=== PATIENT | male | born 1945 | race Caucasian/White ===

== ENCOUNTER 2017-04-04 08:36 | Emergency (ER) | payer MEDICARE, OTHER ==
[2017-04-04 08:38] VITALS: BP 155/71
[2017-04-04] MEDS ORDERED: Lactated Ringers 1,000 ML IV SCH (09:00)
--- NOTE | 2017-04-04 09:12 | EDM.PDOC ---
ED HPI GENERAL MEDICAL PROBLEM - General Chief Complaint: Laceration Stated Complaint: FROM [facility] Time Seen by Provider: 04/04/17 08:40 Source of Information: Reports: Patient, EMS, Old Records History Limitations: Reports: No Limitations - History of Present Illness INITIAL COMMENTS - FREE TEXT/NARRATIVE: 71 yo male here from the dialysis center for uncontrolled bleeding in the L antecubital fossa. They put a clamp on to control bleeding and sent him via EMS to the ER for "a stitch". He has not yet had his dialysis today. Is only on ASA 81 mg daily with regard to anticoagulants. Onset: Today Onset Date: 04/04/17 Onset Time: 08:05 Duration: Minutes:, Constant Location: Reports: Upper Extremity, Left Quality: Reports: Other (no pain) Severity: Severe Improves with: Reports: Other (direct pressure) Worsens with: Reports: Other (removal of direct pressure.) Context: Reports: Other (dialysis patient) Associated Symptoms: Reports: Other (bleeding only) Treatments [employer]: Reports: Other (see below) (direct pressure) - Related Data Allergies Allergy/AdvReac Type Severity Reaction Status Date / Time No Known Allergies Allergy Verified 04/04/17 08:39 Home Meds: Home Meds Calcium Acetate [Phoslo] 3 cap PO TIDMEALS 11/29/14 [History] Cinacalcet [Sensipar] 30 mg PO DAILY 11/29/14 [History] Docusate Sodium 100 mg PO BID 11/29/14 [History] Omeprazole 20 mg PO BEDTIME 11/29/14 [History] Aspirin [Adult Low Dose Aspirin EC] 81 mg PO DAILY 04/04/17 [History] Lactulose 30 ml PO DAILY 04/04/17 [History] Midodrine 5 mg PO ASDIRECTED PRN 04/04/17 [History] Polyethylene Glycol 3350 [MiraLAX] 17 gm PO TID 04/04/17 [History] Sevelamer Carbonate [Renvela] 800 mg PO BID 04/04/17 [History] Sodium Polystyrene Sulfonate [Kayexalate] 60 ml PO ASDIRECTED 04/04/17 [History] traMADol [Ultram] 50 mg PO TID 04/04/17 [History] Social & Family History - Tobacco Use Smoking Status *Q: Former Smoker Years of Tobacco use: 50 Used Tobacco, but Quit: Yes Month Tobacco Last Used: 12 - Recreational Drug Use Recreational Drug Use: No ED ROS GENERAL - Review of Systems Review Of Systems: See Below Constitutional: Reports: No Symptoms HEENT: Reports: No Symptoms Respiratory: Reports: No Symptoms Cardiovascular: Reports: No Symptoms Endocrine: Reports: No Symptoms GI/Abdominal: Reports: No Symptoms : Reports: No Symptoms Skin: Reports: Other (Wound left antecubital fossa with arterial bleeding.) Neurological: Reports: No Symptoms ED EXAM, SKIN/RASH Exam: See Below Exam Limited By: No Limitations General Appearance: Alert, WD/WN, No Apparent Distress Respiratory/Chest: No Respiratory Distress, Lungs Clear, Normal Breath Sounds, No Accessory Muscle Use Cardiovascular: Regular Rate, Rhythm, No Edema Skin: Warm, Dry, Normal Color, No Rash, Wound/Incision (L antecubital fossa with arterial bleeding noted when clamp was removed to inspect wound. ) Location, Skin: Upper Extremity, Left Course - Vital Signs Text/Narrative:: Discussed with Dr. Salazar. Will transfer to a vascular surgeon in [place] at [place]. Dr. Acevedo accepted. EMS transfer. Last Recorded V/S: Last Vital Signs Temp 36.2 C 04/04/17 08:37 Pulse 62 04/04/17 08:37 Resp 16 04/04/17 08:37 BP 155/71 H 04/04/17 08:37 Pulse Ox 99 04/04/17 08:37 - Orders/Labs/Meds Orders: Active Orders 24 hr Category Date Time Status Lactated Ringers [Ringers, Lactated] 1,000 ml Med 04/04/17 09:00 Active IV ASDIRECTED Medication Orders Lactated Ringer's (Ringers, Lactated) 1,000 mls @ 125 mls/hr IV ASDIRECTED [facility] Meds: Medications Generic Name Dose Route Start Last Admin Trade Name Freq PRN Reason Stop Dose Admin Lactated Ringer's 1,000 mls @ 125 mls/hr 04/04/17 09:00 Ringers, Lactated IV ASDIRECTED MAICOL Departure - Departure Time of Disposition: 09:30 Disposition: DC/Tfer to Acute Hospital 02 Condition: Fair Clinical Impression: Brachial artery laceration Qualifiers: Encounter type: initial encounter Laterality: left Qualified Code(s): S45.112A - Laceration of brachial artery, left side, initial encounter - Discharge Information Referrals: PCP,None [Primary Care Provider] - - My Orders Last 24 Hours: My Active Orders 04/04/17 09:00 Lactated Ringers [Ringers, Lactated] 1,000 ml IV ASDIRECTED - Assessment/Plan Last 24 Hours: My Active Orders 04/04/17 09:00 Lactated Ringers [Ringers, Lactated] 1,000 ml IV ASDIRECTED
== END 2017-04-04 10:22 ==
LOC: JP.ED 08:36
DX: S45.112A Laceration of brachial artery, left side, initial encounter (principal); Z79.899 Other long term (current) drug therapy; Z87.891 Personal history of nicotine dependence; X58.XXXA Exposure to other specified factors, initial encounter
CPT/HCPCS: 96360; 96361; 99284; J7120

== ENCOUNTER 2017-04-23 02:25 | Emergency (ER) | payer MEDICARE ==
--- NOTE | 2017-04-23 02:39 | EDM.PDOC ---
ED HPI GENERAL MEDICAL PROBLEM - General Chief Complaint: Skin Complaint Stated Complaint: MEDICAL [facility] Time Seen by Provider: 04/23/17 02:25 Source of Information: Reports: Patient, EMS History Limitations: Reports: No Limitations - History of Present Illness INITIAL COMMENTS - FREE TEXT/NARRATIVE: 71-year-old male has been on dialysis for 7 years, tends to scratch and pick at his skin on his arms and opened a small wound on the surface of his fistula this evening. It bled for almost a half hour, he called the ambulance and the bleeding was controlled when ambulance arrived. The overlying scab that was pulled off has sealed, it's a very tiny spot over the fistula that was bleeding. There is no active bleeding at this time. Patient is stable. Onset: Sudden Duration: Hour(s): (About 30 minutes ago) Location: Reports: Upper Extremity, Left Severity: Mild denies pain Pain Score (Numeric/FACES): 0 - Related Data Allergies Allergy/AdvReac Type Severity Reaction Status Date / Time No Known Allergies Allergy Verified 04/23/17 02:35 Home Meds: Home Meds Calcium Acetate [Phoslo] 3 cap PO TIDMEALS 11/29/14 [History] Cinacalcet [Sensipar] 30 mg PO DAILY 11/29/14 [History] Docusate Sodium 100 mg PO BID 11/29/14 [History] Omeprazole 20 mg PO BEDTIME 11/29/14 [History] Aspirin [Adult Low Dose Aspirin EC] 81 mg PO DAILY 04/04/17 [History] Lactulose 30 ml PO DAILY 04/04/17 [History] Midodrine 5 mg PO ASDIRECTED PRN 04/04/17 [History] Polyethylene Glycol 3350 [MiraLAX] 17 gm PO TID 04/04/17 [History] Sevelamer Carbonate [Renvela] 800 mg PO BID 04/04/17 [History] Sodium Polystyrene Sulfonate [Kayexalate] 60 ml PO ASDIRECTED 04/04/17 [History] traMADol [Ultram] 50 mg PO TID 04/04/17 [History] Social & Family History - Tobacco Use Smoking Status *Q: Former Smoker Years of Tobacco use: 50 Used Tobacco, but Quit: Yes Month Tobacco Last Used: 12 - Recreational Drug Use Recreational Drug Use: No ED ROS GENERAL - Review of Systems Review Of Systems: See Below Constitutional: Denies: Fever Respiratory: Denies: Shortness of Breath Cardiovascular: Denies: Chest Pain GI/Abdominal: Denies: Nausea, Vomiting ED EXAM, SKIN/RASH Exam: See Below Exam Limited By: No Limitations General Appearance: Alert, No Apparent Distress Respiratory/Chest: No Respiratory Distress Extremities: Other (Exam is otherwise limited to the left arm. There are numerous superficial excoriations on the arm, a couple overlying the fistula area. A very small 1-2 mm puncture wound that was bleeding earlier has now dried without active bleeding) Course - Vital Signs Last Recorded V/S: Last Vital Signs Temp 97.3 F 04/23/17 02:35 Pulse 87 04/23/17 02:35 Resp 18 04/23/17 02:35 BP 96/54 L 04/23/17 02:35 Pulse Ox 98 04/23/17 02:35 - Re-Assessments/Exams Free Text/Narrative Re-Assessment/Exam: 04/23/17 02:37 A moderate pressure dressing was applied to the area and the patient can keep this on for the next 1-2 days. He can return if bleeding recurs and uncontrolled. Departure - Departure Time of Disposition: 02:58 Disposition: Home, Self-Care 01 Condition: Good Clinical Impression: Hemorrhage - Discharge Information Instructions: AV Fistula Placement, Care After Referrals: PCP,None [Primary Care Provider] - Forms: ED Department Discharge Care Plan Goals: Keep pressure dressing on the arm the next 1-2 days, or if comfortable leave on until the next dialysis run. Return if bleeding recurs and uncontrolled.
[2017-04-23 02:54] VITALS: BP 96/54
== END 2017-04-23 02:57 | disposition home or self-care (01) ==
LOC: JP.ED 02:25
DX: R58 Hemorrhage, not elsewhere classified (principal); Z79.899 Other long term (current) drug therapy; Z79.82 Long term (current) use of aspirin; Z87.891 Personal history of nicotine dependence
CPT/HCPCS: 99283; 99284

== ENCOUNTER 2017-04-25 07:19 | Emergency (ER) | payer MEDICARE ==
--- NOTE | 2017-04-25 09:10 | EDM.PDOC ---
ED HPI GENERAL MEDICAL PROBLEM - General Chief Complaint: General Stated Complaint: BLEEDING FROM LEFT ARM PORT Time Seen by Provider: 04/25/17 07:25 Source of Information: Reports: Patient History Limitations: Reports: No Limitations - History of Present Illness INITIAL COMMENTS - FREE TEXT/NARRATIVE: Pt arrived with active bleeding from the av shunt in the left arm. He went to Dialysis and when they cleaned the site the scab came off and he started to bleed actively. He is pumping from the site. Onset: Today Duration: Hour(s):, Other ( There is pressure on the site and it is controlled but when the pressure is let up it is still pumping. ) Location: Reports: Upper Extremity, Left Associated Symptoms: Reports: No Other Symptoms - Related Data Allergies Allergy/AdvReac Type Severity Reaction Status Date / Time No Known Allergies Allergy Verified 04/25/17 07:27 Home Meds: Home Meds Calcium Acetate [Phoslo] 3 cap PO TIDMEALS 11/29/14 [History] Omeprazole 20 mg PO BEDTIME 11/29/14 [History] Aspirin [Adult Low Dose Aspirin EC] 81 mg PO DAILY 04/04/17 [History] Lactulose 30 ml PO DAILY 04/04/17 [History] Midodrine 5 mg PO ASDIRECTED PRN 04/04/17 [History] Polyethylene Glycol 3350 [MiraLAX] 17 gm PO TID 04/04/17 [History] Sevelamer Carbonate [Renvela] 800 mg PO BID 04/04/17 [History] Sodium Polystyrene Sulfonate [Kayexalate] 60 ml PO ASDIRECTED 04/04/17 [History] traMADol [Ultram] 50 mg PO TID 04/04/17 [History] Docusate Sodium [Colace] 2 cap PO BID 04/25/17 [History] Magnesium Hydroxide [Milk of Magnesia] 30 ml PO DAILY PRN 04/25/17 [History] Past Medical History HEENT History: Reports: Impaired Vision Gastrointestinal History: Reports: Chronic Constipation, Chronic Diarrhea Genitourinary History: Reports: Dialysis, Renal Disease Dermatologic History: Reports: Other (See Below) Other Dermatologic History: dry skin - Infectious Disease History Infectious Disease History: Reports: Chicken Pox, Measles - Past Surgical History HEENT Surgical History: Reports: Oral Surgery Social & Family History - Tobacco Use Smoking Status *Q: Never Smoker Years of Tobacco use: 50 Used Tobacco, but Quit: Yes Month Tobacco Last Used: 12 - Caffeine Use Caffeine Use: Reports: None - Recreational Drug Use Recreational Drug Use: No ED ROS GENERAL - Review of Systems Review Of Systems: See Below Constitutional: Reports: No Symptoms HEENT: Reports: No Symptoms Respiratory: Reports: No Symptoms Cardiovascular: Reports: No Symptoms Endocrine: Reports: No Symptoms GI/Abdominal: Reports: No Symptoms : Reports: No Symptoms Musculoskeletal: Reports: No Symptoms, Other ( Pt has active bleeding from the av shunt. ) Neurological: Reports: No Symptoms ED EXAM, GENERAL - Physical Exam Exam: See Below Free Text/Narrative:: pt arrived with alot of bleeding from the av shunt on the left arm. He was not assessed this am at dialysis. He was cleaned with betadine. as he was being cleaned h had the scab come off and he started having alot of bleeding. Pressure was applied and he continued to bleed as soomn as the pressure was taken off. Exam Limited By: No Limitations General Appearance: Alert, No Apparent Distress, Anxious Ears: Normal TMs Nose: Normal Inspection Throat/Mouth: Normal Inspection Head: Atraumatic Neck: Normal Inspection Respiratory/Chest: No Respiratory Distress Cardiovascular: Regular Rate, Rhythm GI/Abdominal: Non-Tender (Male) Exam: Deferred Rectal (Males) Exam: Deferred Back Exam: Normal Inspection Extremities: Other ( Pt has a AV shunt on his left rm. He has active bleeding coming from the site. This is actually pumping as soon as the pressure is off. ) Neurological: Alert, Oriented, Normal Cognition Psychiatric: Normal Affect Course - Vital Signs Last Recorded V/S: Last Vital Signs Temp 34.2 C L 04/25/17 07:25 Pulse 62 04/25/17 07:25 Resp 16 04/25/17 07:25 BP 137/59 L 04/25/17 07:25 Pulse Ox 98 04/25/17 07:25 - Orders/Labs/Meds Orders: Active Orders 24 hr Category Date Time Status UA W/MICROSCOPIC [URIN] Urgent Lab 04/25/17 08:08 Uncollected Labs: Laboratory Tests 04/25/17 04/25/17 04/25/17 Range/Units 08:20 08:20 08:20 WBC 12.8 H (4.5-11.0) K/uL RBC 3.83 L (4.30-5.90) M/uL Hgb 12.1 (12.0-15.0) g/dL Hct 36.0 L (40.0-54.0) % MCV 94 (80-98) fL MCH 32 H (27-31) pg MCHC 34 (32-36) % Plt Count 200 (150-400) K/uL Neut % (Auto) 64 (36-66) % Lymph % (Auto) 23 L (24-44) % Gillespie % (Auto) 10 H (2-6) % Eos % (Auto) 3 (2-4) % Baso % (Auto) 0 (0-1) % PT (9.5-12.0) sec INR (0.80-1.20) APTT 27.1 (27.0-36.0) sec Sodium 130 L (140-148) mmol/L Potassium 5.0 (3.6-5.2) mmol/L Chloride 92 L (100-108) mmol/L Carbon Dioxide 27 (21-32) mmol/L Anion Gap 16.0 H (5.0-14.0) mmol/L BUN 75 H (7-18) mg/dL Creatinine 11.8 H* (0.8-1.3) mg/dL Est Cr Clr Drug Dosing 6.01 mL/min Estimated GFR (MDRD) 4 L (>60) Glucose 92 (74-106) mg/dL Calcium 9.3 (8.5-10.1) mg/dL Total Bilirubin 0.5 (0.2-1.0) mg/dL AST 16 (15-37) U/L ALT 20 (12-78) U/L Alkaline Phosphatase 50 (46-116) U/L Total Protein 6.6 (6.4-8.2) g/dL Albumin 3.0 L (3.4-5.0) g/dL Globulin 3.6 H (2.3-3.5) g/dL Albumin/Globulin Ratio 0.8 L (1.2-2.2) 04/25/17 Range/Units 08:20 WBC (4.5-11.0) K/uL RBC (4.30-5.90) M/uL Hgb (12.0-15.0) g/dL Hct (40.0-54.0) % MCV (80-98) fL MCH (27-31) pg MCHC (32-36) % Plt Count (150-400) K/uL Neut % (Auto) (36-66) % Lymph % (Auto) (24-44) % Gillespie % (Auto) (2-6) % Eos % (Auto) (2-4) % Baso % (Auto) (0-1) % PT 11.3 (9.5-12.0) sec INR 1.05 (0.80-1.20) APTT (27.0-36.0) sec Sodium (140-148) mmol/L Potassium (3.6-5.2) mmol/L Chloride (100-108) mmol/L Carbon Dioxide (21-32) mmol/L Anion Gap (5.0-14.0) mmol/L BUN (7-18) mg/dL Creatinine (0.8-1.3) mg/dL Est Cr Clr Drug Dosing mL/min Estimated GFR (MDRD) (>60) Glucose (74-106) mg/dL Calcium (8.5-10.1) mg/dL Total Bilirubin (0.2-1.0) mg/dL AST (15-37) U/L ALT (12-78) U/L Alkaline Phosphatase (46-116) U/L Total Protein (6.4-8.2) g/dL Albumin (3.4-5.0) g/dL Globulin (2.3-3.5) g/dL Albumin/Globulin Ratio (1.2-2.2) - Re-Assessments/Exams Free Text/Narrative Re-Assessment/Exam: 04/25/17 09:38 Pt arrived with active bleeding. his Inr and ptt is normal. His creatine is greater than 11 but this is usual for him. Departure - Departure Time of Disposition: 09:58 Disposition: DC/Tfer to Acute Hospital 02 Condition: Fair Clinical Impression: Mechanical complication of AV shunt, Renal insufficiency - Discharge Information Referrals: PCP,None [Primary Care Provider] - Forms: ED Department Discharge Care Plan Goals: Transfer to [facility] for inpatient dialysis and evaluation of the AV shunt. - My Orders Last 24 Hours: My Active Orders 04/25/17 08:08 UA W/MICROSCOPIC [URIN] Urgent - Assessment/Plan Last 24 Hours: My Active Orders 04/25/17 08:08 UA W/MICROSCOPIC [URIN] Urgent
[2017-04-25 10:17] VITALS: BP 141/55
== END 2017-04-25 10:55 ==
LOC: JP.ED 07:19
DX: T82.591A Other mechanical complication of surgically created arteriovenous shunt, initial encounter (principal); N18.9 Chronic kidney disease, unspecified; Z79.82 Long term (current) use of aspirin; Z79.899 Other long term (current) drug therapy; Z99.2 Dependence on renal dialysis
CPT/HCPCS: 36415; 80053; 85025; 85610; 85730; 99285

== ENCOUNTER 2017-04-27 05:52 | Emergency (ER) | payer MEDICARE ==
[2017-04-27 06:06] VITALS: BP 157/77
--- NOTE | 2017-04-27 06:29 | EDM.PDOC ---
ED HPI GENERAL MEDICAL PROBLEM - General Chief Complaint: General Stated Complaint: Bleeding Time Seen by Provider: 04/27/17 06:10 Source of Information: Reports: Patient, RN Notes Reviewed History Limitations: Reports: No Limitations - History of Present Illness INITIAL COMMENTS - FREE TEXT/NARRATIVE: 71-year-old male with chronic renal failure on dialysis, was sent here from dialysis because of wet dressing over his dialysis fistula site. There was a concern that he had bleeding from his port site. However the dressing was still in place, the wound had not been inspected. Nursing staff remove the dressing here there was no active bleeding in place. In the past as patient has been known to take at the scabs from dialysis and this could be a source of bleeding if he is still indulging in his behavior - Related Data Allergies Allergy/AdvReac Type Severity Reaction Status Date / Time No Known Allergies Allergy Verified 04/25/17 07:27 Home Meds: Home Meds Calcium Acetate [Phoslo] 3 cap PO TIDMEALS 11/29/14 [History] Omeprazole 20 mg PO BEDTIME 11/29/14 [History] Aspirin [Adult Low Dose Aspirin EC] 81 mg PO DAILY 04/04/17 [History] Lactulose 30 ml PO DAILY 04/04/17 [History] Midodrine 5 mg PO ASDIRECTED PRN 04/04/17 [History] Polyethylene Glycol 3350 [MiraLAX] 17 gm PO TID 04/04/17 [History] Sevelamer Carbonate [Renvela] 800 mg PO BID 04/04/17 [History] Sodium Polystyrene Sulfonate [Kayexalate] 60 ml PO ASDIRECTED 04/04/17 [History] traMADol [Ultram] 50 mg PO TID 04/04/17 [History] Docusate Sodium [Colace] 2 cap PO BID 04/25/17 [History] Magnesium Hydroxide [Milk of Magnesia] 30 ml PO DAILY PRN 04/25/17 [History] Past Medical History HEENT History: Reports: Impaired Vision Gastrointestinal History: Reports: Chronic Constipation, Chronic Diarrhea Genitourinary History: Reports: Dialysis, Renal Disease Dermatologic History: Reports: Other (See Below) Other Dermatologic History: dry skin - Infectious Disease History Infectious Disease History: Reports: Chicken Pox, Measles - Past Surgical History HEENT Surgical History: Reports: Oral Surgery Social & Family History - Tobacco Use Smoking Status *Q: Unknown Ever Smoked Years of Tobacco use: 50 Used Tobacco, but Quit: Yes Month Tobacco Last Used: 12 - Caffeine Use Caffeine Use: Reports: None - Recreational Drug Use Recreational Drug Use: No ED ROS GENERAL - Review of Systems Review Of Systems: ROS reveals no pertinent complaints other than HPI. Skin: Reports: Other (Bleeding from fistula site on the upper arm) ED EXAM, GENERAL - Physical Exam Exam: See Below Exam Limited By: No Limitations General Appearance: Alert, No Apparent Distress, Other (Elevated blood pressure but other vital signs normal) Respiratory/Chest: No Respiratory Distress, No Accessory Muscle Use Cardiovascular: Normal Peripheral Pulses (Except week hand pulses because of fistula), Regular Rate, Rhythm Neurological: Alert, Oriented Psychiatric: Normal Mood Skin Exam: Warm, Dry, Other (Fistula site upper arm, no active bleeding) Lymphatic: No Adenopathy Course - Vital Signs Last Recorded V/S: Last Vital Signs Temp 35.5 C 04/27/17 06:03 Pulse 67 04/27/17 06:03 Resp 15 04/27/17 06:03 BP 157/77 H 04/27/17 06:03 Pulse Ox 100 04/27/17 06:03 - Re-Assessments/Exams Free Text/Narrative Re-Assessment/Exam: 04/27/17 06: 71-year-old gentleman who was sent from dialysis because of bleeding at his fistula site. However when the site was undressed and inspected, he had no active bleeding currently. Can be transferred back to dialysis. 04/27/17 06:42 Departure - Departure Time of Disposition: 06:28 Disposition: Home, Self-Care 01 Condition: Fair Clinical Impression: Chronic kidney disease with end stage renal failure on dialysis Bleeding from dialysis shunt Qualifiers: Encounter type: initial encounter Qualified Code(s): T82.838A - Hemorrhage due to vascular prosthetic devices, implants and grafts, initial encounter - Discharge Information Instructions: Vascular Access for Hemodialysis Referrals: Reggie Rebolledo MD [Primary Care Provider] - Forms: ED Department Discharge Additional Instructions: Bleeding has stopped Continue with dialysis.
== END 2017-04-27 06:36 | disposition home or self-care (01) ==
LOC: JP.ED 05:52
DX: T82.838A Hemorrhage due to vascular prosthetic devices, implants and grafts, initial encounter (principal); N18.6 End stage renal disease; Z99.2 Dependence on renal dialysis; Z79.899 Other long term (current) drug therapy; Z79.82 Long term (current) use of aspirin
CPT/HCPCS: 99282; 99284

== ENCOUNTER 2017-08-05 06:10 | Emergency (ER) | payer MEDICARE ==
[2017-08-05 06:24] VITALS: BP 131/71
--- NOTE | 2017-08-05 07:10 | EDM.PDOC ---
ED HPI GENERAL MEDICAL PROBLEM - General Chief Complaint: Cardiovascular Problem Stated Complaint: MEDICAL VIA [facility] Time Seen by Provider: 08/05/17 07:04 Source of Information: Reports: Patient, RN Notes Reviewed History Limitations: Reports: No Limitations - History of Present Illness INITIAL COMMENTS - FREE TEXT/NARRATIVE: 71-year-old gentleman presents emergency department today with complaint of bleeding from his dialysis fistula. He has had this happen before he does have a clamp in place is otherwise asymptomatic at this time - Related Data Allergies Allergy/AdvReac Type Severity Reaction Status Date / Time No Known Allergies Allergy Verified 08/05/17 06:22 Home Meds: Home Meds Calcium Acetate [Phoslo] 4 cap PO TIDMEALS 11/29/14 [History] Omeprazole 20 mg PO BEDTIME 11/29/14 [History] Aspirin [Adult Low Dose Aspirin EC] 81 mg PO DAILY 04/04/17 [History] Lactulose 30 ml PO DAILY PRN 04/04/17 [History] Midodrine 5 mg PO ASDIRECTED PRN 04/04/17 [History] Polyethylene Glycol 3350 [MiraLAX] 17 gm PO DAILY PRN 04/04/17 [History] Sevelamer Carbonate [Renvela] 800 mg PO BID 04/04/17 [History] Sodium Polystyrene Sulfonate [Kayexalate] 30 g PO ASDIRECTED 04/04/17 [History] traMADol [Ultram] 50 mg PO TID 04/04/17 [History] Docusate Sodium [Colace] 2 cap PO BID 04/25/17 [History] Magnesium Hydroxide [Milk of Magnesia] 30 ml PO DAILY PRN 04/25/17 [History] Acetaminophen [Pain Relief Extra Strength] 500 mg PO QID PRN 08/05/17 [History] Past Medical History HEENT History: Reports: Cataract, Impaired Vision Cardiovascular History: Reports: High Cholesterol Respiratory History: Reports: SOB Gastrointestinal History: Reports: Chronic Constipation, Chronic Diarrhea Genitourinary History: Reports: Dialysis, Renal Disease Endocrine/Metabolic History: Reports: Obesity/BMI 30+ Hematologic History: Reports: Anemia Dermatologic History: Reports: Other (See Below) Other Dermatologic History: dry skin - Infectious Disease History Infectious Disease History: Reports: Chicken Pox, Measles - Past Surgical History HEENT Surgical History: Reports: Oral Surgery Cardiovascular Surgical History: Reports: Vascular Surgery Respiratory Surgical History: Reports: Thoracentesis GI Surgical History: Reports: Colonoscopy, EGD Social & Family History - Tobacco Use Smoking Status *Q: Current Every Day Smoker Years of Tobacco use: 55 Packs/Tins Daily: 1 Used Tobacco, but Quit: Yes Month/Year Tobacco Last Used: 12 - Caffeine Use Caffeine Use: Reports: Coffee - Recreational Drug Use Recreational Drug Use: No ED ROS GENERAL - Review of Systems Review Of Systems: See Below Constitutional: Reports: No Symptoms Respiratory: Reports: No Symptoms Cardiovascular: Reports: No Symptoms Skin: Reports: Wound ED EXAM, GENERAL - Physical Exam Exam: See Below Free Text/Narrative:: Examination of dialysis fistula he does have a clamp on left arm bleeding is controlled Exam Limited By: No Limitations General Appearance: Alert, WD/WN, No Apparent Distress Respiratory/Chest: No Respiratory Distress Course - Vital Signs Last Recorded V/S: Last Vital Signs Temp 95.2 F L 08/05/17 06:18 Pulse 72 08/05/17 06:18 Resp 18 08/05/17 06:18 BP 131/71 08/05/17 06:18 Pulse Ox 99 08/05/17 06:18 - Orders/Labs/Meds Labs: Laboratory Tests 08/05/17 Range/Units 08:25 Hgb 15.4 H D (12.0-15.0) g/dL Departure - Departure Time of Disposition: 10:13 Disposition: Home, Self-Care 01 Condition: Good Clinical Impression: Bleeding from dialysis shunt Qualifiers: Encounter type: initial encounter Qualified Code(s): T82.838A - Hemorrhage due to vascular prosthetic devices, implants and grafts, initial encounter Referrals: PCP,None [Primary Care Provider] - Forms: ED Department Discharge Additional Instructions: Please follow-up with dialysis when available keep your follow-up appointments with your information systems administrator and primary care as scheduled, please return to the emergency department worsening of symptoms - Assessment/Plan Plan: Assessment Acuity = acute Site and laterality = bleeding fistula site left arm Etiology = spontaneous Manifestations = none Location of injury = Home Lab values = hemoglobin 15.4 Plan The bleeding was stopped with pressure and ice, plan is to discharge home follow -up with dialysis when available This note was dictated using [employer] voice recognition software please call with any questions on syntax or oralia.
== END 2017-08-05 10:37 | disposition home or self-care (01) ==
LOC: JP.ED 06:10
DX: T82.838A Hemorrhage due to vascular prosthetic devices, implants and grafts, initial encounter (principal); F17.210 Nicotine dependence, cigarettes, uncomplicated; E78.00 Pure hypercholesterolemia, unspecified; Z79.82 Long term (current) use of aspirin; Z79.899 Other long term (current) drug therapy
CPT/HCPCS: 36415; 85018; 99284

== ENCOUNTER 2017-08-24 05:22 | Emergency (ER) | payer MEDICARE, OTHER ==
--- NOTE | 2017-08-24 05:37 | EDM.PDOC ---
ED HPI GENERAL MEDICAL PROBLEM - General Time Seen by Provider: 08/24/17 05:22 Source of Information: Reports: Patient History Limitations: Reports: No Limitations - History of Present Illness INITIAL COMMENTS - FREE TEXT/NARRATIVE: 71-year-old male was a bout to go to dialysis when his left antecubital area of his arm near his fistula started bleeding again. He pulled into the ER ramp bleeding all over the place. Pressure was applied immediately. Bleeding was controlled. He has no other symptoms, but evaluating the ambulance garage and his vehicle revealed quite a bit of blood and clots. CBC was drawn. Onset: Sudden Duration: Minutes: (Within just the last few minutes) Location: Reports: Upper Extremity, Left Severity: Moderate Associated Symptoms: Reports: No Other Symptoms Denies Pain Score (Numeric/FACES): 0 - Related Data Allergies Allergy/AdvReac Type Severity Reaction Status Date / Time No Known Allergies Allergy Verified 08/24/17 05:39 Home Meds: Home Meds Calcium Acetate [Phoslo] 4 cap PO TIDMEALS 11/29/14 [History] Omeprazole 20 mg PO BEDTIME 11/29/14 [History] Aspirin [Adult Low Dose Aspirin EC] 81 mg PO DAILY 04/04/17 [History] Lactulose 30 ml PO DAILY PRN 04/04/17 [History] Midodrine 5 mg PO ASDIRECTED PRN 04/04/17 [History] Polyethylene Glycol 3350 [MiraLAX] 17 gm PO DAILY PRN 04/04/17 [History] Sevelamer Carbonate [Renvela] 800 mg PO BID 04/04/17 [History] Sodium Polystyrene Sulfonate [Kayexalate] 30 g PO ASDIRECTED 04/04/17 [History] traMADol [Ultram] 50 mg PO TID 04/04/17 [History] Docusate Sodium [Colace] 2 cap PO BID 04/25/17 [History] Magnesium Hydroxide [Milk of Magnesia] 30 ml PO DAILY PRN 04/25/17 [History] Acetaminophen [Pain Relief Extra Strength] 500 mg PO QID PRN 08/05/17 [History] Past Medical History HEENT History: Reports: Cataract, Impaired Vision Cardiovascular History: Reports: High Cholesterol Respiratory History: Reports: SOB Gastrointestinal History: Reports: Chronic Constipation, Chronic Diarrhea Genitourinary History: Reports: Dialysis, Renal Disease Endocrine/Metabolic History: Reports: Obesity/BMI 30+ Hematologic History: Reports: Anemia Dermatologic History: Reports: Other (See Below) Other Dermatologic History: dry skin - Infectious Disease History Infectious Disease History: Reports: Chicken Pox, Measles - Past Surgical History HEENT Surgical History: Reports: Oral Surgery Cardiovascular Surgical History: Reports: Vascular Surgery Respiratory Surgical History: Reports: Thoracentesis GI Surgical History: Reports: Colonoscopy, EGD Social & Family History - Caffeine Use Caffeine Use: Reports: Coffee ED ROS GENERAL - Review of Systems Review Of Systems: See Below Constitutional: Denies: Fever, Chills Respiratory: Denies: Shortness of Breath GI/Abdominal: Denies: Nausea, Vomiting ED EXAM, GENERAL - Physical Exam Exam: See Below Exam Limited By: No Limitations General Appearance: Alert, No Apparent Distress Respiratory/Chest: No Respiratory Distress Extremities: Other (Exam is otherwise limited to the small pinhole size puncture type wound in the left antecubital area of the arm that was bleeding briskly) Course - Vital Signs Last Recorded V/S: Last Vital Signs Temp 97.2 F 08/24/17 05:49 Pulse 70 08/24/17 05:49 Resp 16 08/24/17 05:49 BP 129/71 08/24/17 05:49 Pulse Ox 96 08/24/17 05:49 - Orders/Labs/Meds Labs: Laboratory Tests 08/24/17 Range/Units 05:30 WBC 11.1 H (4.5-11.0) K/uL RBC 4.69 (4.30-5.90) M/uL Hgb 14.4 (12.0-15.0) g/dL Hct 43.4 (40.0-54.0) % MCV 93 (80-98) fL MCH 31 (27-31) pg MCHC 33 (32-36) % Plt Count 235 (150-400) K/uL Neut % (Auto) 51 (36-66) % Lymph % (Auto) 29 (24-44) % [place] % (Auto) 13 H (2-6) % Eos % (Auto) 6 H (2-4) % Baso % (Auto) 1 (0-1) % - Re-Assessments/Exams Free Text/Narrative Re-Assessment/Exam: 08/24/17 05:36 A 4 x 4 was folded 4 times and applied to the bleeding site and a 2 inch Eduar wrap was wrapped firmly around the 4 x 4. This provided hemostasis. 08/24/17 06:55 After one and a half hours of pressure the Eduar wrap was removed and just the wraparound arm clamp was applied to the pressure gauze. There was no active bleeding at that time. 08/24/17 06:56 Hemoglobin returned normal at 14.4. 08/24/17 06:57 Cool compresses placed around the clamp and bleeding continued to be controlled. He was discharged back to dialysis and if bleeding recurs he can be sent back. 08/24/17 07:13 Dialysis called. Would not take the patient until the clamp was often bleeding had not recurred. Patient wants to wait another 30 minutes to an hour before removing the clamp so will be discharged at that time, or reevaluated if bleeding recurs Departure - Departure Time of Disposition: 08:05 Disposition: Home, Self-Care 01 Condition: Fair Clinical Impression: Bleeding from dialysis shunt Qualifiers: Encounter type: initial encounter Qualified Code(s): T82.838A - Hemorrhage due to vascular prosthetic devices, implants and grafts, initial encounter - Discharge Information Instructions: Puncture Wound, [id number] Referrals: PCP,None [Primary Care Provider] - Forms: ED Department Discharge Additional Instructions: Keep pressure on bleeding area until dialysis is ready to evaluate. Return if bleeding recurs and is uncontrollable.
[2017-08-24 05:51] VITALS: BP 129/71
== END 2017-08-24 08:05 | disposition home or self-care (01) ==
LOC: JP.ED 05:22
DX: T82.838A Hemorrhage due to vascular prosthetic devices, implants and grafts, initial encounter (principal); E78.00 Pure hypercholesterolemia, unspecified; D64.9 Anemia, unspecified; Z79.899 Other long term (current) drug therapy; Z79.82 Long term (current) use of aspirin
CPT/HCPCS: 36415; 85025; 99284

== ENCOUNTER 2017-12-12 17:23 | Emergency (ER) | payer MEDICARE ==
[2017-12-12] MEDS ORDERED: Sodium Chloride 0.9% 10 ML Syringe FLUSH PRN ×2 (18:04)
[2017-12-12] MEDS ORDERED: Aspirin 81 MG Tab.Chew PO ONE (18:04)
[2017-12-12] MEDS ORDERED: Nitroglycerin 0.4 MG Tab.SL SL PRN (18:04)
[2017-12-12] MEDS ORDERED: Heparin Sodium 5,000 Units/ML Vial IVPUSH ONE (18:04)
[2017-12-12] MEDS ORDERED: Morphine 4 MG/ML Syringe IVPUSH PRN (18:04)
[2017-12-12] MEDS ORDERED: Heparin Sodium/D5W 25,000 UNITS/500 ML BAG IV SCH (18:15)
[2017-12-12] MEDS ORDERED: Clopidogrel 75 MG Tab PO ONE (18:19)
[2017-12-12] MEDS ORDERED: Sodium Chloride 0.9% 1,000 ML IV SCH (18:30)
--- NOTE | 2017-12-12 18:48 | EDM.PDOC ---
ED HPI GENERAL MEDICAL PROBLEM - General Chief Complaint: Chest Pain Stated Complaint: HEMOGLOBIN LOW Time Seen by Provider: 12/12/17 18:20 Source of Information: Reports: Patient, Family, RN Notes Reviewed History Limitations: Reports: No Limitations - History of Present Illness INITIAL COMMENTS - FREE TEXT/NARRATIVE: 72-year-old gentleman presents to the emergency department today complaint of chest pain, he has a known history of end-stage renal disease is currently on dialysis recently completed dialysis run today. States been having chest pain for about 24 hours denies any cardiac history. No stents or CABG. He is a very poor historian difficult to get information from him. He is unsure why he is on dialysis. I have no old EKG records to compare Chest Pain Score (Numeric/FACES): 8 - Related Data Allergies Allergy/AdvReac Type Severity Reaction Status Date / Time No Known Allergies Allergy Verified 12/12/17 17:57 Home Meds: Home Meds Lactulose 30 ml PO DAILY PRN 04/04/17 [History] Midodrine 5 mg PO ASDIRECTED PRN 04/04/17 [History] Polyethylene Glycol 3350 [MiraLAX] 17 gm PO DAILY PRN 04/04/17 [History] traMADol [Ultram] 50 mg PO TID 04/04/17 [History] Docusate Sodium [Colace] 2 cap PO BID 04/25/17 [History] Magnesium Hydroxide [Milk of Magnesia] 30 ml PO DAILY PRN 04/25/17 [History] Acetaminophen [Pain Relief Extra Strength] 500 mg PO QID PRN 08/05/17 [History] Aspirin [Adult Low Dose Aspirin EC] 81 mg PO DAILY 12/12/17 [History] Calcium Acetate 4 cap PO TID 12/12/17 [History] Calcium Acetate [PhosLo] 667 mg PO TID 12/12/17 [History] Ipratropium/Albuterol Sulfate [Iprat-Albut 0.5-3(2.5) MG/3 ML] 3 ml IH Q6H PRN 12/12/17 [History] Lanthanum Carbonate [Fosrenol] 1,000 mg PO TID 12/12/17 [History] Ranitidine [Zantac] 150 mg PO BID 12/12/17 [History] Sodium Polystyrene Sulfonate [Kayexalate] 30 g PO ASDIRECTED 12/12/17 [History] Past Medical History HEENT History: Reports: Cataract, Impaired Vision Cardiovascular History: Reports: High Cholesterol, Hypertension Respiratory History: Reports: SOB Gastrointestinal History: Reports: Chronic Constipation, Chronic Diarrhea Genitourinary History: Reports: Dialysis, Renal Disease Endocrine/Metabolic History: Reports: Obesity/BMI 30+ Hematologic History: Reports: Anemia Dermatologic History: Reports: Other (See Below) Other Dermatologic History: dry skin - Infectious Disease History Infectious Disease History: Reports: Chicken Pox, Measles - Past Surgical History HEENT Surgical History: Reports: Oral Surgery Cardiovascular Surgical History: Reports: Vascular Surgery Respiratory Surgical History: Reports: Thoracentesis GI Surgical History: Reports: Colonoscopy, EGD Social & Family History - Tobacco Use Smoking Status *Q: Current Every Day Smoker Years of Tobacco use: 57 Packs/Tins Daily: 0.5 - Caffeine Use Caffeine Use: Reports: Coffee ED ROS GENERAL - Review of Systems Review Of Systems: See Below Constitutional: Reports: No Symptoms Respiratory: Reports: Shortness of Breath Cardiovascular: Reports: Chest Pain, Dyspnea on Exertion GI/Abdominal: Reports: No Symptoms ED EXAM, GENERAL - Physical Exam Exam: See Below Exam Limited By: No Limitations General Appearance: Alert, WD/WN, No Apparent Distress Neck: Normal Inspection, Supple, Non-Tender, Full Range of Motion Respiratory/Chest: No Respiratory Distress, Lungs Clear, Normal Breath Sounds, No Accessory Muscle Use Cardiovascular: Regular Rate, Rhythm, Systolic Murmur GI/Abdominal: Soft, Non-Tender Course - Vital Signs Last Recorded V/S: Last Vital Signs Temp 97.8 F 12/12/17 17:51 Pulse 70 12/12/17 17:51 Resp 16 12/12/17 17:51 BP 89/44 L 12/12/17 17:51 Pulse Ox 100 12/12/17 17:51 - Orders/Labs/Meds Orders: Active Orders 24 hr Category Date Time Status EKG Documentation Completion [RC] ASDIRECTED Care 12/12/17 18:05 Active Peripheral IV Care [RC] . DIRECTED Care 12/12/17 18:05 Active COMPREHENSIVE METABOLIC PN,CMP [CHEM] Stat Lab 12/12/17 18:23 Received INR,PT,PROTHROMBIN TIME [COAG] Stat Lab 12/12/17 18:23 Received TROPONIN I [CHEM] Stat Lab 12/12/17 18:23 Received Heparin Sodium/D5W [Heparin 25,000 Units in D5W 500 ML] Med 12/12/17 18:15 Active 25,000 units in 500 ml IV TITRATE Morphine Med 12/12/17 18:04 Active 4 mg IVPUSH Q10M PRN Nitroglycerin [Nitrostat] Med 12/12/17 18:04 Active 0.4 mg SL Q5M PRN Sodium Chloride 0.9% [Normal Saline] 1,000 ml Med 12/12/17 18:30 Active IV ASDIRECTED Sodium Chloride 0.9% [Saline Flush] Med 12/12/17 18:04 Active 10 ml FLUSH ASDIRECTED PRN Sodium Chloride 0.9% [Saline Flush] Med 12/12/17 18:04 Active 10 ml FLUSH ASDIRECTED PRN Peripheral IV Insertion Adult [OM.PC] Stat Oth 12/12/17 18:04 Ordered EKG 12 Lead [EK] Stat Ther 12/12/17 18:04 Ordered Medication Orders Heparin Sodium/Dextrose (Heparin 25,000 Units In D5w 500 Ml) 25,000 units in 500 mls @ 24.821 mls/hr IV TITRATE MAICOL; Protocol Sodium Chloride (Normal Saline) 1,000 mls @ 500 mls/hr IV ASDIRECTED MAICOL Last Admin: 12/12/17 18:21 Dose: 500 mls/hr Morphine Sulfate (Morphine) 4 mg IVPUSH Q10M PRN PRN Reason: Chest Pain Stop: 12/13/17 18:05 Last Admin: 12/12/17 18:22 Dose: 4 mg Nitroglycerin (Nitrostat) 0.4 mg SL Q5M PRN PRN Reason: Chest Pain Stop: 12/13/17 18:05 Sodium Chloride (Saline Flush) 10 ml FLUSH ASDIRECTED PRN PRN Reason: Keep Vein Open Sodium Chloride (Saline Flush) 10 ml FLUSH ASDIRECTED PRN PRN Reason: Keep Vein Open Labs: Laboratory Tests 12/12/17 Range/Units 18:23 WBC 11.7 H (4.5-11.0) K/uL RBC 2.18 L (4.30-5.90) M/uL Hgb 6.5 L* (12.0-15.0) g/dL Hct 19.8 L (40.0-54.0) % MCV 91 (80-98) fL MCH 30 (27-31) pg MCHC 33 (32-36) % Plt Count 186 (150-400) K/uL Neut % (Auto) 61 (36-66) % Lymph % (Auto) 25 (24-44) % [place] % (Auto) 11 H (2-6) % Eos % (Auto) 2 (2-4) % Baso % (Auto) 1 (0-1) % Meds: Medications Generic Name Dose Route Start Last Admin Trade Name Romulo PRN Reason Stop Dose Admin Heparin Sodium/Dextrose 25,000 units in 500 mls @ 24.821 mls/hr 12/12/17 18: 15 Heparin 25,000 Units In D5w 500 Ml IV TITRATE MAICOL Protocol 12 UNITS/KG/HR Sodium Chloride 1,000 mls @ 500 mls/hr 12/12/17 18:30 12/12/17 18:21 Normal Saline IV 500 mls/hr ASDIRECTED MAICOL Administration Morphine Sulfate 4 mg 12/12/17 18:04 12/12/17 18:22 Morphine IVPUSH 12/13/17 18:05 4 mg Q10M PRN Administration Chest Pain Nitroglycerin 0.4 mg 12/12/17 18:04 Nitrostat SL 12/13/17 18:05 Q5M PRN Chest Pain Sodium Chloride 10 ml 12/12/17 18:04 Saline Flush FLUSH ASDIRECTED PRN Keep Vein Open Sodium Chloride 10 ml 12/12/17 18:04 Saline Flush FLUSH ASDIRECTED PRN Keep Vein Open Discontinued Medications Generic Name Dose Route Start Last Admin Trade Name Romulo PRN Reason Stop Dose Admin Aspirin 324 mg 12/12/17 18:04 12/12/17 18:25 Aspirin PO 12/12/17 18:05 324 mg ONETIME ONE Administration Clopidogrel Bisulfate 600 mg 12/12/17 18:19 12/12/17 18:29 Plavix PO 12/12/17 18:20 600 mg ONETIME ONE Administration Heparin Sodium (Porcine) 0 units 12/12/17 18:04 12/12/17 18:26 Heparin Sodium IVPUSH 12/12/17 18:05 4,000 units .BOLUS ONE Administration Departure - Departure Time of Disposition: 18:47 Disposition: DC/Tfer to Acute Hospital 02 Reason for Transfer *Q: Primary PCI Indicated Condition: Poor Clinical Impression: ST elevation myocardial infarction (STEMI) Qualifiers: Involved coronary artery: unspecified coronary artery Qualified Code(s): I21.3 - ST elevation (STEMI) myocardial infarction of unspecified site Referrals: PCP,None [Primary Care Provider] - Forms: ED Department Discharge - My Orders Last 24 Hours: My Active Orders 12/12/17 18:04 Morphine 4 mg IVPUSH Q10M PRN Nitroglycerin [Nitrostat] 0.4 mg SL Q5M PRN Sodium Chloride 0.9% [Saline Flush] 10 ml FLUSH ASDIRECTED PRN Sodium Chloride 0.9% [Saline Flush] 10 ml FLUSH ASDIRECTED PRN Peripheral IV Insertion Adult [OM.PC] Stat EKG 12 Lead [EK] Stat 12/12/17 18:05 EKG Documentation Completion [RC] ASDIRECTED Peripheral IV Care [RC] . DIRECTED 12/12/17 18:15 Heparin Sodium/D5W [Heparin 25,000 Units in D5W 500 ML] 25,000 units in 500 ml IV TITRATE 12/12/17 18:23 COMPREHENSIVE METABOLIC PN,CMP [CHEM] Stat INR,PT,PROTHROMBIN TIME [COAG] Stat TROPONIN I [CHEM] Stat 12/12/17 18:30 Sodium Chloride 0.9% [Normal Saline] 1,000 ml IV ASDIRECTED - Assessment/Plan Last 24 Hours: My Active Orders 12/12/17 18:04 Morphine 4 mg IVPUSH Q10M PRN Nitroglycerin [Nitrostat] 0.4 mg SL Q5M PRN Sodium Chloride 0.9% [Saline Flush] 10 ml FLUSH ASDIRECTED PRN Sodium Chloride 0.9% [Saline Flush] 10 ml FLUSH ASDIRECTED PRN Peripheral IV Insertion Adult [OM.PC] Stat EKG 12 Lead [EK] Stat 12/12/17 18:05 EKG Documentation Completion [RC] ASDIRECTED Peripheral IV Care [RC] . DIRECTED 12/12/17 18:15 Heparin Sodium/D5W [Heparin 25,000 Units in D5W 500 ML] 25,000 units in 500 ml IV TITRATE 12/12/17 18:23 COMPREHENSIVE METABOLIC PN,CMP [CHEM] Stat INR,PT,PROTHROMBIN TIME [COAG] Stat TROPONIN I [CHEM] Stat 12/12/17 18:30 Sodium Chloride 0.9% [Normal Saline] 1,000 ml IV ASDIRECTED Plan: Assessment Acuity = acute Site and laterality = ST elevation myocardial infarction complicated patient with end-stage renal disease on dialysis Etiology = probable underlying coronary artery disease Manifestations = chest pain and dyspnea Location of injury = Home Lab values = hemoglobin 6.5 consistent with normochromic anemia, EKG demonstrates ST elevations in leads [address] depressions in her cervical changes in V2 and V3 V4 remainder labs are pending Plan Called and discussed the case with Dr. Amaro cardiology on-call at [facility] kindly accepted the patient in transport he has been given 500 mL bolus of fluids, aspirin, 4 mg morphine, 600 mg Plavix, heparin bolus initiated heparin drip he will be transported via air care This note was dictated using [employer] voice recognition software please call with any questions on syntax or grammar.
[2017-12-12 18:50] VITALS: BP 102/54
== END 2017-12-12 19:09 ==
LOC: JP.ED 17:23
DX: I21.3 ST elevation (STEMI) myocardial infarction of unspecified site (principal); E78.00 Pure hypercholesterolemia, unspecified; I12.0 Hypertensive chronic kidney disease with stage 5 chronic kidney disease or end stage renal disease; N18.6 End stage renal disease; F17.210 Nicotine dependence, cigarettes, uncomplicated; Z79.899 Other long term (current) drug therapy; Z99.2 Dependence on renal dialysis
CPT/HCPCS: 36415; 80053; 84484; 85025; 85610; 93005; 96361; 96374; 96375; 99285; A9270; J1644; J2270; J7030

== ENCOUNTER 2017-12-23 15:54 | Emergency (ER) | payer MEDICARE ==
[2017-12-23 16:19] VITALS: BP 152/67
[2017-12-23] MEDS ORDERED: Albuterol 0.083% 2.5 MG/3 ML Neb Soln NEB ONE (16:42)
[2017-12-23] MEDS ORDERED: Furosemide 40 MG/4 ML VIAL IM ONE (17:01)
[2017-12-23] MEDS ORDERED: Sodium Chloride 0.9% 10 ML Syringe FLUSH PRN (17:03)
[2017-12-23] MEDS ORDERED: Furosemide 40 MG/4 ML VIAL IVPUSH ONE (17:04)
[2017-12-23] MEDS ORDERED: Acetaminophen 325 MG Tab PO ONE (17:10)
[2017-12-23] MEDS ORDERED: cefTRIAXone 1 GM in Sodium Chloride 0.9% 50 ML IV ONE (17:13)
--- NOTE | 2017-12-23 17:15 | EDM.PDOC ---
ED HPI GENERAL MEDICAL PROBLEM - General Chief Complaint: Abdominal Pain Stated Complaint: ILLNESS Time Seen by Provider: 12/23/17 16:20 Source of Information: Reports: Patient History Limitations: Reports: No Limitations - History of Present Illness INITIAL COMMENTS - FREE TEXT/NARRATIVE: pt had a IL about 1 week ago and was sent to [place]. He got home yesterday and had dialysis today. She spiked a temp while at dialysis. He has had a bad cough and his abdomanal muscles are even tender from coughing. Onset: Gradual, Other (pt was caoughing alot while in [place]. That has continued. ) Duration: Hour(s):, Getting Worse, Other (pt spiked a temp. ) Location: Reports: Chest Associated Symptoms: Reports: Cough, Fever/Chills, Other (wheezing. ) Lower Abdominal Pain Score (Numeric/FACES): 7 - Related Data Allergies Allergy/AdvReac Type Severity Reaction Status Date / Time No Known Allergies Allergy Verified 12/23/17 16:30 Home Meds: Home Meds Lactulose 30 ml PO DAILY PRN 04/04/17 [History] Midodrine 5 mg PO ASDIRECTED PRN 04/04/17 [History] Polyethylene Glycol 3350 [MiraLAX] 17 gm PO DAILY PRN 04/04/17 [History] traMADol [Ultram] 50 mg PO TID 04/04/17 [History] Docusate Sodium [Colace] 2 cap PO BID 04/25/17 [History] Magnesium Hydroxide [Milk of Magnesia] 30 ml PO DAILY PRN 04/25/17 [History] Acetaminophen [Pain Relief Extra Strength] 500 mg PO QID PRN 08/05/17 [History] Aspirin [Adult Low Dose Aspirin EC] 81 mg PO DAILY 12/12/17 [History] Calcium Acetate 4 cap PO TID 12/12/17 [History] Calcium Acetate [PhosLo] 667 mg PO TID 12/12/17 [History] Ipratropium/Albuterol Sulfate [Iprat-Albut 0.5-3(2.5) MG/3 ML] 3 ml IH Q6H PRN 12/12/17 [History] Lanthanum Carbonate [Fosrenol] 1,000 mg PO TID 12/12/17 [History] Ranitidine [Zantac] 150 mg PO BID 12/12/17 [History] Sodium Polystyrene Sulfonate [Kayexalate] 30 g PO ASDIRECTED 12/12/17 [History] Past Medical History HEENT History: Reports: Cataract, Impaired Vision Cardiovascular History: Reports: High Cholesterol, Hypertension Respiratory History: Reports: SOB Gastrointestinal History: Reports: Chronic Constipation, Chronic Diarrhea Genitourinary History: Reports: Dialysis, Renal Disease Musculoskeletal History: Reports: None Endocrine/Metabolic History: Reports: Obesity/BMI 30+ Hematologic History: Reports: Anemia Dermatologic History: Reports: Other (See Below) Other Dermatologic History: dry skin - Infectious Disease History Infectious Disease History: Reports: Chicken Pox, Measles - Past Surgical History Head Surgeries/Procedures: Reports: None HEENT Surgical History: Reports: Adenoidectomy, Oral Surgery, Tonsillectomy Cardiovascular Surgical History: Reports: Vascular Surgery Respiratory Surgical History: Reports: Thoracentesis GI Surgical History: Reports: Colonoscopy, EGD Endocrine Surgical History: Reports: None Dermatological Surgical History: Reports: None Social & Family History - Tobacco Use Smoking Status *Q: Former Smoker Used Tobacco, but Quit: Yes Month/Year Tobacco Last Used: 2017 Second Hand Smoke Exposure: No - Caffeine Use Caffeine Use: Reports: Coffee - Recreational Drug Use Recreational Drug Use: No ED ROS GENERAL - Review of Systems Review Of Systems: See Below Constitutional: Reports: Fever, Chills, Malaise HEENT: Reports: No Symptoms Respiratory: Reports: Wheezing, Cough, Sputum Cardiovascular: Reports: No Symptoms Endocrine: Reports: No Symptoms GI/Abdominal: Reports: Other ( pt has tender abdomanal muscles from coughing) : Reports: No Symptoms Musculoskeletal: Reports: No Symptoms Skin: Reports: No Symptoms Neurological: Reports: No Symptoms Psychiatric: Reports: No Symptoms ED EXAM, GENERAL - Physical Exam Exam: See Below Free Text/Narrative:: Pt is coughing alot and is raising some white sputum. He had a fever at dialysis today. He has tender abdomanal muscles from all of the coughing. Exam Limited By: No Limitations General Appearance: Alert, Mild Distress Ears: Normal TMs Nose: Normal Inspection Throat/Mouth: Normal Inspection Head: Atraumatic Neck: Normal Inspection Respiratory/Chest: Decreased Breath Sounds, Wheezing Cardiovascular: Regular Rate, Rhythm, Tachycardia GI/Abdominal: Soft, Non-Tender, Other (tender uipper abdomanal muscles. ) (Male) Exam: Deferred Rectal (Males) Exam: Deferred Back Exam: Normal Inspection Extremities: Pedal Edema, Other (pt has very puffy legs) Neurological: Alert, Oriented Psychiatric: Normal Affect Course - Vital Signs Last Recorded V/S: Last Vital Signs Temp 37.7 C 12/23/17 17:19 Pulse 80 12/23/17 16:31 Resp 20 12/23/17 16:31 BP 152/67 H 12/23/17 16:31 Pulse Ox 95 12/23/17 16:31 - Orders/Labs/Meds Labs: Laboratory Tests 12/23/17 12/23/17 Range/Units 16:29 16:29 WBC 14.0 H (4.5-11.0) K/uL RBC 3.21 L (4.30-5.90) M/uL Hgb 9.3 L D (12.0-15.0) g/dL Hct 28.7 L (40.0-54.0) % MCV 89 (80-98) fL MCH 29 (27-31) pg MCHC 32 (32-36) % Plt Count 349 (150-400) K/uL Neut % (Auto) 80 H (36-66) % Lymph % (Auto) 7 L (24-44) % [place] % (Auto) 11 H (2-6) % Eos % (Auto) 1 L (2-4) % Baso % (Auto) 0 (0-1) % Sodium 132 L (140-148) mmol/L Potassium 4.2 (3.6-5.2) mmol/L Chloride 94 L (100-108) mmol/L Carbon Dioxide 30 (21-32) mmol/L Anion Gap 12.2 (5.0-14.0) mmol/L BUN 18 (7-18) mg/dL Creatinine 3.4 H (0.8-1.3) mg/dL Est Cr Clr Drug Dosing 21.22 mL/min Estimated GFR (MDRD) 18 L (>60) Glucose 88 (74-106) mg/dL Calcium 8.8 (8.5-10.1) mg/dL Total Bilirubin 0.7 (0.2-1.0) mg/dL AST 52 H (15-37) U/L ALT 70 D (12-78) U/L Alkaline Phosphatase 67 D (46-116) U/L Total Protein 6.6 (6.4-8.2) g/dL Albumin 2.1 L (3.4-5.0) g/dL Globulin 4.5 H (2.3-3.5) g/dL Albumin/Globulin Ratio 0.5 L (1.2-2.2) Meds: Medications Discontinued Medications Generic Name Dose Route Start Last Admin Trade Name Romulo PRN Reason Stop Dose Admin Acetaminophen 650 mg 12/23/17 17:10 12/23/17 17:19 Tylenol PO 12/23/17 17:11 650 mg NOW ONE Administration Albuterol 2.5 mg 12/23/17 16:42 12/23/17 17:21 Proventil Neb Soln NEB 12/23/17 16:43 2.5 mg ONETIME ONE Administration Ceftriaxone Sodium 1 gm/ 0 gm 12/23/17 17:50 12/23/17 18:01 Lidocaine HCl 2.1 ml IM 12/23/17 17:51 1 inj ONETIME ONE Administration Furosemide 60 mg 12/23/17 17:01 12/23/17 18:00 Lasix IM 12/23/17 17:02 60 mg ONETIME ONE Administration Furosemide 60 mg 12/23/17 17:04 Lasix IVPUSH 12/23/17 17:05 ONETIME ONE Ceftriaxone Sodium 1 gm/ 50 mls @ 100 mls/hr 12/23/17 17:13 Sodium Chloride IV 12/23/17 17:42 ONETIME ONE Sodium Chloride 10 ml 12/23/17 17:03 Saline Flush FLUSH ASDIRECTED PRN Keep Vein Open - Re-Assessments/Exams Free Text/Narrative Re-Assessment/Exam: 12/23/17 17:20 chest xray may have extra fluid and some infiltrate. Wbc is 14,000. 12/23/17 17:45 pt was given lasix 60mg im and rocehen 1 gm im. His wheezing did improve with the neb--albuterol. Departure - Departure Time of Disposition: 18:50 Disposition: Home, Self-Care 01 Condition: Fair Clinical Impression: Bronchitis, Fluid overload, Wheezing - Discharge Information Instructions: Upper Respiratory Infection, Adult Referrals: Reggie Rebolledo MD [Primary Care Provider] - Forms: ED Department Discharge Care Plan Goals: albuterol neb qid for wheezing, augmentin 875 daily poor 10 days. . use probiotic to prevent diarrhes, tylenol 325 to control temp q4h.
[2017-12-23] MEDS ORDERED: cefTRIAXone 1 GM, Lidocaine 1% 2.1 ML IM ONE ×2 (17:50)
--- NOTE | 2017-12-26 08:35 | CR ---
CHEST: 2 view CLINICAL HISTORY:SOB COMPARISON:15 FINDINGS: Heart size is normal. Pulmonary vascularity is cephalized. There is diffuse interstitial p rominence felt to be interstitial edema. There is a small right pleural effusion. There are atheroscl erotic changes in the aorta. There are a few tiny nodular densities bilaterally which are likely gran ulomata.. IMPRESSION: Vascular congestion and interstitial pulmonary edema likely from CHF. Short-term follow- up recommended Previous granulomatous exposure
== END 2017-12-23 18:45 | disposition home or self-care (01) ==
LOC: JP.ED 15:54
DX: J40 Bronchitis, not specified as acute or chronic (principal); E87.70 Fluid overload, unspecified; R06.2 Wheezing; I10 Essential (primary) hypertension; E78.00 Pure hypercholesterolemia, unspecified; Z79.899 Other long term (current) drug therapy; Z79.82 Long term (current) use of aspirin; Z87.891 Personal history of nicotine dependence
CPT/HCPCS: 36415; 71046; 80053; 85025; 87070; 87205; 93005; 94640; 96372; 99284; A9270; J0696; J1940; 93010; 99283

== ENCOUNTER 2018-04-26 03:19 | Emergency (ER) | payer MEDICARE, OTHER ==
[2018-04-26 03:32] VITALS: BP 127/87
--- NOTE | 2018-04-26 04:26 | EDM.PDOC ---
ED HPI GENERAL MEDICAL PROBLEM - General Chief Complaint: General Stated Complaint: BLEEDING DIALYSIS SHUNT Time Seen by Provider: 04/26/18 03:45 Source of Information: Reports: Patient, EMS History Limitations: Reports: No Limitations - History of Present Illness INITIAL COMMENTS - FREE TEXT/NARRATIVE: 72-year-old dialysis patient has had problems over the past several years with recurring malfunctioning and bleeding left arm fistulas and it has occurred again. An hour and a half ago it spontaneously started hemorrhaging very briskly. Initially the police were called who helped the patient get a hemorrhage under control and then EMS arrived. His lungs there is pressure on the arm there is no bleeding, however there is dried blood on his arm his pants his legs and this is very similar to past episodes. His vitals are stable. He has no shortness of breath. He looks pale. Onset: Sudden Duration: Hour(s): (1-1/2 hours ago) Location: Reports: Upper Extremity, Left - Related Data Allergies Allergy/AdvReac Type Severity Reaction Status Date / Time No Known Allergies Allergy Verified 04/26/18 03:35 Home Meds: Home Meds Magnesium Hydroxide [Milk of Magnesia] 30 ml PO DAILY PRN 04/25/17 [History] Aspirin [Adult Low Dose Aspirin EC] 81 mg PO DAILY 12/12/17 [History] Calcium Acetate [PhosLo] 2 tab PO TID 12/12/17 [History] Ipratropium/Albuterol Sulfate [Iprat-Albut 0.5-3(2.5) MG/3 ML] 3 ml IH Q6H PRN 12/12/17 [History] Acetaminophen [Tylenol] 325 mg PO Q4H PRN 02/20/18 [History] Albuterol Sulfate 1.25 mg IH QID 02/20/18 [History] Budesonide [Pulmicort] 0.5 mg IH BID 02/20/18 [History] Cinacalcet [Sensipar] 30 mg PO DAILY 02/20/18 [History] Clopidogrel [Plavix] 75 mg PO DAILY 02/20/18 [History] Lanthanum Carbonate [Fosrenol] 1,000 mg PO TID 02/20/18 [History] Lidocaine 5% [Lidoderm 5%] 1 patch TOP DAILY 02/20/18 [History] Magnesium Chloride [Mag-64] 2 tab PO DAILY 02/20/18 [History] Metoprolol Succinate [Toprol XL] 25 mg PO DAILY 02/20/18 [History] Pantoprazole Sodium [Protonix] 40 mg PO BID 02/20/18 [History] Patiromer Calcium Sorbitex [Veltassa] 8.4 gm PO DAILY 02/20/18 [History] Polyethylene Glycol 3350 [Miralax] 17 gm PO DAILY PRN MDD cons 02/20/18 [History ] Sennosides/Docusate Sodium [Senna Plus Tablet] 2 tab PO BID 02/20/18 [History] Tiotropium [Spiriva HandiHaler] 1 cap INH DAILY 02/20/18 [History] traMADol [Ultram] 1 tab PO TID PRN 02/20/18 [History] Midodrine 5 mg PO BID 03/08/18 [History] Past Medical History HEENT History: Reports: None Cardiovascular History: Reports: High Cholesterol, Hypertension, [place] Respiratory History: Reports: SOB Gastrointestinal History: Reports: Chronic Constipation, Chronic Diarrhea Genitourinary History: Reports: Dialysis, Renal Disease Endocrine/Metabolic History: Reports: Obesity/BMI 30+ Hematologic History: Reports: Anemia Dermatologic History: Reports: Other (See Below) Other Dermatologic History: dry skin - Infectious Disease History Infectious Disease History: Reports: Chicken Pox - Past Surgical History Head Surgeries/Procedures: Reports: None HEENT Surgical History: Reports: Oral Surgery Cardiovascular Surgical History: Reports: Coronary Artery Stent, Vascular Surgery Respiratory Surgical History: Reports: Thoracentesis GI Surgical History: Reports: Colonoscopy, EGD Male Surgical History: Reports: None Endocrine Surgical History: Reports: None Dermatological Surgical History: Reports: None Social & Family History - Tobacco Use Smoking Status *Q: Current Every Day Smoker Years of Tobacco use: 57 Packs/Tins Daily: 0.5 - Caffeine Use Caffeine Use: Reports: Coffee, Tea - Recreational Drug Use Recreational Drug Use: No ED ROS GENERAL - Review of Systems Review Of Systems: See Below Constitutional: Denies: Fever, Chills Respiratory: Denies: Shortness of Breath GI/Abdominal: Denies: Abdominal Pain, Nausea, Vomiting Neurological: Denies: Headache ED EXAM, GENERAL - Physical Exam Exam: See Below Exam Limited By: No Limitations General Appearance: Alert, No Apparent Distress Eye Exam: Bilateral Eye: Other (Conjunctiva looked pale) Head: Atraumatic Respiratory/Chest: No Respiratory Distress, Lungs Clear Cardiovascular: Regular Rate, Rhythm. No: Tachycardia Extremities: Other (Left arm has a pressure dressing over the antecubital area, there is some ecchymosis to the skin and a lot of dried blood on the arm) Neurological: Alert, Oriented Skin Exam: Warm, Dry, Pallor (Somewhat pale) Course - Vital Signs Last Recorded V/S: Last Vital Signs Temp 96.5 F 04/26/18 03:29 Pulse 70 04/26/18 03:29 Resp 18 04/26/18 03:29 BP 127/87 04/26/18 03:29 Pulse Ox 97 04/26/18 03:29 - Re-Assessments/Exams Free Text/Narrative Re-Assessment/Exam: 04/26/18 04:24 Apparently dialysis will not accept this patient if he has had any hemorrhaging from the left arm in the past several days prior to dialysis. Therefore he'll need to be transferred back to [facility] for vascular surgery, interventional radiology evaluation of the shunt and possible repair for dialysis. Dr. Don kindly accepted the patient after visiting with surgery on-call Dr. Lam. Departure - Departure Time of Disposition: 04:51 Disposition: DC/Tfer to Other Condition: Fair Clinical Impression: Hemorrhage of arteriovenous fistula Qualifiers: Encounter type: initial encounter Qualified Code(s): T82.838A - Hemorrhage due to vascular prosthetic devices, implants and grafts, initial encounter - Discharge Information Referrals: PCP,None [Primary Care Provider] - Forms: ED Department Discharge Care Plan Goals: Patient will be transferred to [facility] for evaluation of his left arm fistula and ultimately dialysis.
== END 2018-04-26 05:57 | disposition other institution (70) ==
LOC: JP.ED 03:19
DX: T82.838A Hemorrhage due to vascular prosthetic devices, implants and grafts, initial encounter (principal); F17.210 Nicotine dependence, cigarettes, uncomplicated; I10 Essential (primary) hypertension; E78.00 Pure hypercholesterolemia, unspecified; Z79.899 Other long term (current) drug therapy; Z79.82 Long term (current) use of aspirin
CPT/HCPCS: 99285

== ENCOUNTER 2018-04-30 17:30 | Emergency (ER) | payer MEDICARE, OTHER ==
[2018-04-30] MEDS ORDERED: Ondansetron 4 MG Tab.DIS ONE (18:05)
[2018-04-30] MEDS ORDERED: Ondansetron 4 MG Tab.DIS PO ONE (18:22)
--- NOTE | 2018-04-30 18:30 | EDM.PDOC ---
<Tk Zamudio - Last Filed: 04/30/18 18:25> ED HPI GENERAL MEDICAL PROBLEM - General Chief Complaint: Cardiovascular Problem Stated Complaint: MEDICAL VIA TRI Time Seen by Provider: 04/30/18 18:00 Source of Information: Reports: Patient, EMS History Limitations: Reports: No Limitations - History of Present Illness INITIAL COMMENTS - FREE TEXT/NARRATIVE: 72-year-old male with chronic renal failure, dialysis patient, and also with a severe cardiomyopathy presents after his external defibrillator that he had placed 2 days ago fired while at home. He had no symptoms, and continues to have no symptoms other than some persistent heartburn for the last 3 days. His battery had been giving him signals that it was going for the last 2 hours , he was in the process of replacing the battery when he was defibrillated. It scared him, he called the ambulance, and is refusing to put another battery in because he doesn't want to be shocked again. He has some nausea but no shortness of breath, they did repair his fistula and he has not missed any dialysis runs. He was just discharged from [facility] yesterday. Onset: Sudden Duration: Hour(s): (Approximately 50 minutes ago) Associated Symptoms: Reports: Nausea/Vomiting. Denies: Chest Pain, Shortness of Breath Chest Pain Score (Numeric/FACES): 6 - Related Data Allergies Allergy/AdvReac Type Severity Reaction Status Date / Time No Known Allergies Allergy Verified 04/30/18 18:08 Home Meds: Home Meds Magnesium Hydroxide [Milk of Magnesia] 30 ml PO DAILY PRN 04/25/17 [History] Aspirin [Adult Low Dose Aspirin EC] 81 mg PO DAILY 12/12/17 [History] Calcium Acetate [PhosLo] 2 tab PO TID 12/12/17 [History] Ipratropium/Albuterol Sulfate [Iprat-Albut 0.5-3(2.5) MG/3 ML] 3 ml IH Q6H PRN 12/12/17 [History] Acetaminophen [Tylenol] 325 mg PO Q4H PRN 02/20/18 [History] Albuterol Sulfate 1.25 mg IH QID 02/20/18 [History] Budesonide [Pulmicort] 0.5 mg IH BID 02/20/18 [History] Cinacalcet [Sensipar] 30 mg PO DAILY 02/20/18 [History] Clopidogrel [Plavix] 75 mg PO DAILY 02/20/18 [History] Lanthanum Carbonate [Fosrenol] 1,000 mg PO TID 02/20/18 [History] Lidocaine 5% [Lidoderm 5%] 1 patch TOP DAILY 02/20/18 [History] Magnesium Chloride [Mag-64] 2 tab PO DAILY 02/20/18 [History] Metoprolol Succinate [Toprol XL] 25 mg PO DAILY 02/20/18 [History] Pantoprazole Sodium [Protonix] 40 mg PO BID 02/20/18 [History] Patiromer Calcium Sorbitex [Veltassa] 8.4 gm PO DAILY 02/20/18 [History] Polyethylene Glycol 3350 [Miralax] 17 gm PO DAILY PRN MDD cons 02/20/18 [History ] Sennosides/Docusate Sodium [Senna Plus Tablet] 2 tab PO BID 02/20/18 [History] Tiotropium [Spiriva HandiHaler] 1 cap INH DAILY 02/20/18 [History] traMADol [Ultram] 1 tab PO TID PRN 02/20/18 [History] Midodrine 5 mg PO BID 03/08/18 [History] Past Medical History HEENT History: Reports: None Cardiovascular History: Reports: High Cholesterol, Hypertension, [place] Respiratory History: Reports: SOB Gastrointestinal History: Reports: Chronic Constipation, Chronic Diarrhea Genitourinary History: Reports: Dialysis, Renal Disease Endocrine/Metabolic History: Reports: Obesity/BMI 30+ Hematologic History: Reports: Anemia Dermatologic History: Reports: Other (See Below) Other Dermatologic History: dry skin - Infectious Disease History Infectious Disease History: Reports: Chicken Pox - Past Surgical History Head Surgeries/Procedures: Reports: None HEENT Surgical History: Reports: Oral Surgery Cardiovascular Surgical History: Reports: Coronary Artery Stent, Vascular Surgery Respiratory Surgical History: Reports: Thoracentesis GI Surgical History: Reports: Colonoscopy, EGD Male Surgical History: Reports: None Social & Family History - Tobacco Use Smoking Status *Q: Light Tobacco Smoker Years of Tobacco use: 57 Packs/Tins Daily: 0.5 - Caffeine Use Caffeine Use: Reports: Coffee, Tea - Recreational Drug Use Recreational Drug Use: No ED ROS GENERAL - Review of Systems Review Of Systems: See Below Constitutional: Denies: Fever, Chills Respiratory: Denies: Shortness of Breath Cardiovascular: Reports: Other (Some chest burning, reflux symptoms for the past 3 days) GI/Abdominal: Reports: Nausea, Vomiting Skin: Reports: Pallor, Other (Widespread bruising) Neurological: Denies: Headache ED EXAM, GENERAL - Physical Exam Exam: See Below Exam Limited By: No Limitations General Appearance: Alert, No Apparent Distress Eye Exam: Bilateral Eye: Other (Pale conjunctiva) Respiratory/Chest: No Respiratory Distress, Crackles (Severity extreme posterior basilar crackles) Cardiovascular: Regular Rate, Rhythm, Extra Beats (Occasional) GI/Abdominal: Soft, Non-Tender Neurological: Alert, Oriented Psychiatric: Anxious EKG INTERPRETATION Rhythm: NSR EKG Interpretation Comments: No significant difference from previous EKG done 3 months ago. EMS EKG had a few PVCs, this one does not. Course - Vital Signs Last Recorded V/S: Last Vital Signs Temp 36.6 C 04/30/18 18:06 Pulse 66 04/30/18 18:46 Resp 18 04/30/18 18:46 BP 140/81 04/30/18 18:46 Pulse Ox 98 04/30/18 18:46 - Orders/Labs/Meds Orders: Active Orders 24 hr Category Date Time Status COMPREHENSIVE METABOLIC PN,CMP [CHEM] Urgent Lab 04/30/18 19:46 Received MAGNESIUM [CHEM] Stat Lab 04/30/18 19:46 Received Labs: Laboratory Tests 04/30/18 Range/Units 19:46 WBC 11.1 H (4.5-11.0) K/uL RBC 4.07 L (4.30-5.90) M/uL Hgb 11.5 L (12.0-15.0) g/dL Hct 34.4 L (40.0-54.0) % MCV 85 (80-98) fL MCH 28 (27-31) pg MCHC 33 (32-36) % Plt Count 150 (150-400) K/uL Neut % (Auto) 82 H (36-66) % Lymph % (Auto) 10 L (24-44) % Latimer % (Auto) 7 H (2-6) % Eos % (Auto) 1 L (2-4) % Baso % (Auto) 0 (0-1) % Meds: Medications Discontinued Medications Generic Name Dose Route Start Last Admin Trade Name Freq PRN Reason Stop Dose Admin Ondansetron HCl Confirm 04/30/18 18:05 04/30/18 18:42 Zofran Odt Administered 04/30/18 18:06 Not Given Dose 4 mg .ROUTE .STK-MED ONE Ondansetron HCl 4 mg 04/30/18 18:22 04/30/18 18:06 Zofran Odt PO 04/30/18 18:23 4 mg ONETIME ONE Administration - Re-Assessments/Exams Free Text/Narrative Re-Assessment/Exam: 04/30/18 18:29 I discussed his condition with cardiology in [place]. The recommendation was to contact the [employer] manufacture. This was done and they are in the process of trying to get an interpretation of the defibrillation, and hopefully a registration representative can come in and visit with the patient. Care was turned over to Dr. Frey pending the registration representative. Departure - Departure Disposition: Home, Self-Care 01 Clinical Impression: Defibrillator discharge, Heart burn Referrals: PCP,None [Primary Care Provider] - Forms: ED Department Discharge Care Plan Goals: maalox liquid tid, continue protonix, rep from the company for the defib vest will come on and replace batteries and give further instructions. - My Orders Last 24 Hours: My Active Orders 04/30/18 19:46 COMPREHENSIVE METABOLIC PN,CMP [CHEM] Urgent MAGNESIUM [CHEM] Stat - Assessment/Plan Last 24 Hours: My Active Orders 04/30/18 19:46 COMPREHENSIVE METABOLIC PN,CMP [CHEM] Urgent MAGNESIUM [CHEM] Stat <Sherin Frey - Last Filed: 04/30/18 20:06> Course - Re-Assessments/Exams Free Text/Narrative Re-Assessment/Exam: 04/30/18 19:58 Once we got the hot box it was determined that the defib went off because of artifact. Pt was to push the response button and he would not have been shocked. A rep will come out and see the pt and eduacate further either tonite or tomorrow. The vest was too loose and that was the reason probably for the artifact. Pt is having alot of heart burn and throat burning . He is on protonix. Will use some maalox and pepcid now, Departure - Departure Time of Disposition: 20:03 Condition: Fair
[2018-04-30 19:19] VITALS: BP 140/81
[2018-04-30] MEDS ORDERED: Aluminum Hydroxide/Magnesium Hydroxide/Simethicone Susp 30 ML Cup PO ONE (20:02)
[2018-04-30] MEDS ORDERED: Famotidine 20 MG Tab PO ONE (20:03)
== END 2018-04-30 20:28 | disposition home or self-care (01) ==
LOC: JP.ED 17:30
DX: T82.599A Other mechanical complication of unspecified cardiac and vascular devices and implants, initial encounter (principal); R12 Heartburn; I42.9 Cardiomyopathy, unspecified; I12.9 Hypertensive chronic kidney disease with stage 1 through stage 4 chronic kidney disease, or unspecified chronic kidney disease; N18.9 Chronic kidney disease, unspecified; I25.2 Old myocardial infarction; F17.200 Nicotine dependence, unspecified, uncomplicated; Z79.82 Long term (current) use of aspirin; Z79.02 Long term (current) use of antithrombotics/antiplatelets; Z79.891 Long term (current) use of opiate analgesic; Z79.899 Other long term (current) drug therapy; Z99.2 Dependence on renal dialysis; Z98.890 Other specified postprocedural states
CPT/HCPCS: 36415; 80053; 83735; 85025; 99284; A9270

== ENCOUNTER 2018-05-01 20:04 | Emergency (ER) | payer MEDICARE ==
[2018-05-01 20:14] VITALS: BP 118/75
--- NOTE | 2018-05-01 21:28 | EDM.PDOC ---
ED HPI GENERAL MEDICAL PROBLEM - General Chief Complaint: General Stated Complaint: ILLNESS Time Seen by Provider: 05/01/18 21:21 Source of Information: Reports: Patient, EMS, RN Notes Reviewed History Limitations: Reports: No Limitations - History of Present Illness INITIAL COMMENTS - FREE TEXT/NARRATIVE: 72-year-old gentleman presents emergency department today via EMS services for bleeding from his fistula site, ambulance crew did have difficulty getting this under control tourniquet was applied. He states that he had dialysis today and this was caused by recent puncture" the scab just fell off" - Related Data Allergies Allergy/AdvReac Type Severity Reaction Status Date / Time No Known Allergies Allergy Verified 04/30/18 18:08 Home Meds: Home Meds Magnesium Hydroxide [Milk of Magnesia] 30 ml PO DAILY PRN 04/25/17 [History] Aspirin [Adult Low Dose Aspirin EC] 81 mg PO DAILY 12/12/17 [History] Calcium Acetate [PhosLo] 2 tab PO TID 12/12/17 [History] Ipratropium/Albuterol Sulfate [Iprat-Albut 0.5-3(2.5) MG/3 ML] 3 ml IH Q6H PRN 12/12/17 [History] Acetaminophen [Tylenol] 325 mg PO Q4H PRN 02/20/18 [History] Albuterol Sulfate 1.25 mg IH QID 02/20/18 [History] Budesonide [Pulmicort] 0.5 mg IH BID 02/20/18 [History] Cinacalcet [Sensipar] 30 mg PO DAILY 02/20/18 [History] Clopidogrel [Plavix] 75 mg PO DAILY 02/20/18 [History] Lanthanum Carbonate [Fosrenol] 1,000 mg PO TID 02/20/18 [History] Lidocaine 5% [Lidoderm 5%] 1 patch TOP DAILY 02/20/18 [History] Magnesium Chloride [Mag-64] 2 tab PO DAILY 02/20/18 [History] Metoprolol Succinate [Toprol XL] 25 mg PO DAILY 02/20/18 [History] Pantoprazole Sodium [Protonix] 40 mg PO BID 02/20/18 [History] Patiromer Calcium Sorbitex [Veltassa] 8.4 gm PO DAILY 02/20/18 [History] Polyethylene Glycol 3350 [Miralax] 17 gm PO DAILY PRN MDD cons 02/20/18 [History ] Sennosides/Docusate Sodium [Senna Plus Tablet] 2 tab PO BID 02/20/18 [History] Tiotropium [Spiriva HandiHaler] 1 cap INH DAILY 02/20/18 [History] traMADol [Ultram] 1 tab PO TID PRN 02/20/18 [History] Midodrine 5 mg PO BID 03/08/18 [History] Past Medical History Cardiovascular History: Reports: CAD, High Cholesterol, Hypertension, [place] Respiratory History: Reports: SOB Gastrointestinal History: Reports: Chronic Constipation, Chronic Diarrhea Genitourinary History: Reports: Dialysis, Renal Disease Endocrine/Metabolic History: Reports: Obesity/BMI 30+ Hematologic History: Reports: Anemia Dermatologic History: Reports: Other (See Below) Other Dermatologic History: dry skin - Infectious Disease History Infectious Disease History: Reports: Chicken Pox - Past Surgical History Head Surgeries/Procedures: Reports: None HEENT Surgical History: Reports: Oral Surgery Cardiovascular Surgical History: Reports: Coronary Artery Stent, Vascular Surgery Respiratory Surgical History: Reports: Thoracentesis GI Surgical History: Reports: Colonoscopy, EGD Male Surgical History: Reports: None Social & Family History - Tobacco Use Smoking Status *Q: Unknown Ever Smoked - Caffeine Use Caffeine Use: Reports: Coffee - Recreational Drug Use Recreational Drug Use: No ED ROS GENERAL - Review of Systems Review Of Systems: See Below Constitutional: Reports: No Symptoms Skin: Reports: Wound ED EXAM, GENERAL - Physical Exam Exam: See Below Free Text/Narrative:: Bleeding from the fistula site, direct pressure was applied above and below the site of figure of 8 stitch was applied over the wound Course - Vital Signs Last Recorded V/S: Last Vital Signs Temp 96.4 F 05/01/18 20:44 Pulse 72 05/01/18 20:44 Resp 16 05/01/18 20:44 BP 118/75 05/01/18 20:44 Pulse Ox 94 L 05/01/18 20:44 Departure - Departure Time of Disposition: 21:28 Disposition: Home, Self-Care 01 Condition: Poor Clinical Impression: Hemorrhage of arteriovenous fistula Qualifiers: Encounter type: initial encounter Qualified Code(s): T82.838A - Hemorrhage due to vascular prosthetic devices, implants and grafts, initial encounter - Discharge Information Referrals: PCP,None [Primary Care Provider] - Additional Instructions: Keep your regular appointments with dialysis and your primary care, call return to the emergency department worsening of symptoms - Assessment/Plan Plan: Assessment Acuity = acute Site and laterality = bleeding fistula site Etiology = unclear etiology Manifestations = none Location of injury = Home Lab values = none Plan Bleeding was controlled wound was dressed tract was removed, discharged home follow-up with primary care and nephrology as scheduled This note was dictated using [employer] voice recognition software please call with any questions on syntax or grammar.
== END 2018-05-01 22:56 | disposition home or self-care (01) ==
LOC: JP.ED 20:04
DX: T82.838A Hemorrhage due to vascular prosthetic devices, implants and grafts, initial encounter (principal); E78.00 Pure hypercholesterolemia, unspecified; I25.10 Atherosclerotic heart disease of native coronary artery without angina pectoris; I10 Essential (primary) hypertension; I25.2 Old myocardial infarction; Z95.5 Presence of coronary angioplasty implant and graft; Z79.899 Other long term (current) drug therapy
CPT/HCPCS: 99284

== ENCOUNTER 2018-05-26 08:47 | Emergency (ER) | payer MEDICARE ==
[2018-05-26 09:15] VITALS: BP 112/66
--- NOTE | 2018-05-26 09:27 | EDM.PDOC ---
ED HPI GENERAL MEDICAL PROBLEM - General Chief Complaint: General Stated Complaint: need stiches removed Time Seen by Provider: 05/26/18 09:27 Source of Information: Reports: Patient History Limitations: Reports: No Limitations - History of Present Illness INITIAL COMMENTS - FREE TEXT/NARRATIVE: pt arrived for suture removal from the shunt side in the left arm. - Related Data Allergies Allergy/AdvReac Type Severity Reaction Status Date / Time No Known Allergies Allergy Verified 05/26/18 09:16 Home Meds: Home Meds Magnesium Hydroxide [Milk of Magnesia] 30 ml PO DAILY PRN 04/25/17 [History] Aspirin [Adult Low Dose Aspirin EC] 81 mg PO DAILY 12/12/17 [History] Calcium Acetate [PhosLo] 2 tab PO TID 12/12/17 [History] Ipratropium/Albuterol Sulfate [Iprat-Albut 0.5-3(2.5) MG/3 ML] 3 ml IH Q6H PRN 12/12/17 [History] Acetaminophen [Tylenol] 325 mg PO Q4H PRN 02/20/18 [History] Albuterol Sulfate 1.25 mg IH QID 02/20/18 [History] Budesonide [Pulmicort] 0.5 mg IH BID 02/20/18 [History] Cinacalcet [Sensipar] 30 mg PO DAILY 02/20/18 [History] Clopidogrel [Plavix] 75 mg PO DAILY 02/20/18 [History] Lanthanum Carbonate [Fosrenol] 1,000 mg PO TID 02/20/18 [History] Lidocaine 5% [Lidoderm 5%] 1 patch TOP DAILY 02/20/18 [History] Magnesium Chloride [Mag-64] 2 tab PO DAILY 02/20/18 [History] Metoprolol Succinate [Toprol XL] 25 mg PO DAILY 02/20/18 [History] Pantoprazole Sodium [Protonix] 40 mg PO BID 02/20/18 [History] Patiromer Calcium Sorbitex [Veltassa] 8.4 gm PO DAILY 02/20/18 [History] Polyethylene Glycol 3350 [Miralax] 17 gm PO DAILY PRN MDD cons 02/20/18 [History ] Sennosides/Docusate Sodium [Senna Plus Tablet] 2 tab PO BID 02/20/18 [History] Tiotropium [Spiriva HandiHaler] 1 cap INH DAILY 02/20/18 [History] traMADol [Ultram] 1 tab PO TID PRN 02/20/18 [History] Midodrine 5 mg PO BID 03/08/18 [History] Amoxicillin/Clavulanate K [Augmentin 875-125 MG] 1 tab PO BID 05/26/18 [History] Past Medical History HEENT History: Reports: None Cardiovascular History: Reports: CAD, High Cholesterol, Hypertension, [place] Respiratory History: Reports: SOB Gastrointestinal History: Reports: Chronic Constipation, Chronic Diarrhea Genitourinary History: Reports: Dialysis, Renal Disease Endocrine/Metabolic History: Reports: Obesity/BMI 30+ Hematologic History: Reports: Anemia Dermatologic History: Reports: Other (See Below) Other Dermatologic History: dry skin - Infectious Disease History Infectious Disease History: Reports: Chicken Pox - Past Surgical History Head Surgeries/Procedures: Reports: None HEENT Surgical History: Reports: Oral Surgery Cardiovascular Surgical History: Reports: Coronary Artery Stent, Vascular Surgery Respiratory Surgical History: Reports: Thoracentesis GI Surgical History: Reports: Colonoscopy, EGD Social & Family History - Tobacco Use Smoking Status *Q: Light Tobacco Smoker Years of Tobacco use: 55 Packs/Tins Daily: 0.4 - Caffeine Use Caffeine Use: Reports: Coffee - Recreational Drug Use Recreational Drug Use: No ED ROS GENERAL - Review of Systems Review Of Systems: See Below Constitutional: Reports: No Symptoms Musculoskeletal: Reports: Other ( pt arrived to have the stitch removed from the shunt site on the left arm) ED EXAM, GENERAL - Physical Exam Exam: See Below Free Text/Narrative:: Pt arrived to have the stitch removed from his shunt site. He has one stitch. Extremities: Other ( stitch was removed without difficulty. There was no bleeding present. ) Neurological: Alert, Oriented, Normal Cognition Course - Vital Signs Last Recorded V/S: Last Vital Signs Temp 36.8 C 05/26/18 09:15 Pulse 87 05/26/18 09:15 Resp 14 05/26/18 09:15 BP 112/66 05/26/18 09:15 Pulse Ox 14 L 05/26/18 09:15 Departure - Departure Time of Disposition: 09:27 Disposition: Home, Self-Care 01 Condition: Fair Clinical Impression: Encounter for removal of sutures - Discharge Information Instructions: Suture Removal, Care After Referrals: PCP,None [Primary Care Provider] - Forms: ED Department Discharge Care Plan Goals: rtc if problems.
== END 2018-05-26 10:00 | disposition home or self-care (01) ==
LOC: JP.ED 08:47
DX: Z48.02 Encounter for removal of sutures (principal); I25.10 Atherosclerotic heart disease of native coronary artery without angina pectoris; E78.00 Pure hypercholesterolemia, unspecified; I10 Essential (primary) hypertension; F17.210 Nicotine dependence, cigarettes, uncomplicated; I25.2 Old myocardial infarction; Z79.899 Other long term (current) drug therapy; Z95.5 Presence of coronary angioplasty implant and graft
CPT/HCPCS: 99281

== ENCOUNTER 2018-06-03 08:45 | Emergency (ER) | payer MEDICARE ==
[2018-06-03] MEDS ORDERED: Albuterol 0.083% 2.5 MG/3 ML Neb Soln NEB ONE ×2 (09:08→11:13)
--- NOTE | 2018-06-03 09:20 | EDM.PDOC ---
ED HPI GENERAL MEDICAL PROBLEM - General Chief Complaint: Respiratory Problem Stated Complaint: COUGH/SHORTNESS OF BREATH Time Seen by Provider: 06/03/18 09:18 Source of Information: Reports: Patient History Limitations: Reports: No Limitations - History of Present Illness INITIAL COMMENTS - FREE TEXT/NARRATIVE: pt was seen at the [facility] about 5 days ago and he was told he had pneumonia. He was placed on augmentin at that time. He has coughed all nite and not been able to sleep. He does not think he is running a fever. Onset: Gradual, Other (Pt has had problems for several days. ) Duration: Hour(s): Location: Reports: Chest Associated Symptoms: Reports: Cough, Malaise, Shortness of Breath - Related Data Allergies Allergy/AdvReac Type Severity Reaction Status Date / Time No Known Allergies Allergy Verified 05/26/18 09:16 Home Meds: Home Meds Magnesium Hydroxide [Milk of Magnesia] 30 ml PO DAILY PRN 04/25/17 [History] Aspirin [Adult Low Dose Aspirin EC] 81 mg PO DAILY 12/12/17 [History] Calcium Acetate [PhosLo] 2 tab PO TID 12/12/17 [History] Ipratropium/Albuterol Sulfate [Iprat-Albut 0.5-3(2.5) MG/3 ML] 3 ml IH Q6H PRN 12/12/17 [History] Acetaminophen [Tylenol] 325 mg PO Q4H PRN 02/20/18 [History] Albuterol Sulfate 1.25 mg IH QID 02/20/18 [History] Budesonide [Pulmicort] 0.5 mg IH BID 02/20/18 [History] Cinacalcet [Sensipar] 30 mg PO DAILY 02/20/18 [History] Clopidogrel [Plavix] 75 mg PO DAILY 02/20/18 [History] Lanthanum Carbonate [Fosrenol] 1,000 mg PO TID 02/20/18 [History] Lidocaine 5% [Lidoderm 5%] 1 patch TOP DAILY 02/20/18 [History] Magnesium Chloride [Mag-64] 2 tab PO DAILY 02/20/18 [History] Metoprolol Succinate [Toprol XL] 25 mg PO DAILY 02/20/18 [History] Pantoprazole Sodium [Protonix] 40 mg PO BID 02/20/18 [History] Patiromer Calcium Sorbitex [Veltassa] 8.4 gm PO DAILY 02/20/18 [History] Polyethylene Glycol 3350 [Miralax] 17 gm PO DAILY PRN MDD cons 02/20/18 [History ] Sennosides/Docusate Sodium [Senna Plus Tablet] 2 tab PO BID 02/20/18 [History] Tiotropium [Spiriva HandiHaler] 1 cap INH DAILY 02/20/18 [History] traMADol [Ultram] 1 tab PO TID PRN 02/20/18 [History] Midodrine 5 mg PO BID 03/08/18 [History] Amoxicillin/Clavulanate K [Augmentin 875-125 MG] 1 tab PO BID 05/26/18 [History] Past Medical History HEENT History: Reports: None Cardiovascular History: Reports: CAD, High Cholesterol, Hypertension, [place] Respiratory History: Reports: SOB Gastrointestinal History: Reports: Chronic Constipation, Chronic Diarrhea Genitourinary History: Reports: Dialysis, Renal Disease Endocrine/Metabolic History: Reports: Obesity/BMI 30+ Hematologic History: Reports: Anemia Dermatologic History: Reports: Other (See Below) Other Dermatologic History: dry skin - Infectious Disease History Infectious Disease History: Reports: Chicken Pox - Past Surgical History Head Surgeries/Procedures: Reports: None HEENT Surgical History: Reports: Oral Surgery Cardiovascular Surgical History: Reports: Coronary Artery Stent, Vascular Surgery Respiratory Surgical History: Reports: Thoracentesis GI Surgical History: Reports: Colonoscopy, EGD Social & Family History - Caffeine Use Caffeine Use: Reports: Coffee ED ROS GENERAL - Review of Systems Review Of Systems: See Below Constitutional: Reports: Chills, Malaise, Other (pt has a marked cough. ) HEENT: Reports: No Symptoms Respiratory: Reports: Shortness of Breath, Cough Cardiovascular: Reports: Dyspnea on Exertion Endocrine: Reports: No Symptoms GI/Abdominal: Reports: No Symptoms : Reports: Other (pt is a dialysis pt. ) Musculoskeletal: Reports: No Symptoms Skin: Reports: No Symptoms Neurological: Reports: No Symptoms ED EXAM, GENERAL - Physical Exam Exam: See Below Free Text/Narrative:: pt has been awake all nite because of a cough. He has been on augmentin for 5 days which was perscribed by the [facility]. He hasbeen increasig sob. Exam Limited By: No Limitations General Appearance: Alert, Moderate Distress Ears: Normal TMs Nose: Normal Inspection Throat/Mouth: Normal Inspection Head: Atraumatic Respiratory/Chest: Decreased Breath Sounds, Wheezing Cardiovascular: Regular Rate, Rhythm GI/Abdominal: Soft, Non-Tender (Male) Exam: Deferred Rectal (Males) Exam: Deferred Back Exam: Normal Inspection Extremities: Normal Inspection Neurological: Alert, Oriented, Normal Cognition Psychiatric: Normal Affect Course - Vital Signs Last Recorded V/S: Last Vital Signs Temp 36.2 C 06/03/18 10:46 Pulse 92 06/03/18 10:46 Resp 18 06/03/18 10:46 BP 132/83 06/03/18 10:46 Pulse Ox 97 06/03/18 10:46 - Orders/Labs/Meds Orders: Active Orders 24 hr Category Date Time Status RT Aerosol Therapy [RC] ASDIRECTED Care 06/03/18 09:08 Active RT Aerosol Therapy [RC] ASDIRECTED Care 06/03/18 11:13 Active Labs: Laboratory Tests 06/03/18 06/03/18 Range/Units 09:15 09:15 WBC 10.7 (4.5-11.0) K/uL RBC 3.51 L (4.30-5.90) M/uL Hgb 9.9 L (12.0-15.0) g/dL Hct 32.3 L (40.0-54.0) % MCV 92 (80-98) fL MCH 28 (27-31) pg MCHC 31 L (32-36) % Plt Count 162 (150-400) K/uL Neut % (Auto) 79 H (36-66) % Lymph % (Auto) 10 L (24-44) % [place] % (Auto) 10 H (2-6) % Eos % (Auto) 1 L (2-4) % Baso % (Auto) 1 (0-1) % Sodium 135 L (140-148) mmol/L Potassium 4.6 (3.6-5.2) mmol/L Chloride 96 L (100-108) mmol/L Carbon Dioxide 26 (21-32) mmol/L Anion Gap 17.6 H (5.0-14.0) mmol/L BUN 47 H (7-18) mg/dL Creatinine 7.4 H* (0.8-1.3) mg/dL Est Cr Clr Drug Dosing 9.45 mL/min Estimated GFR (MDRD) 7 L (>60) Glucose 103 (74-106) mg/dL Calcium 9.6 (8.5-10.1) mg/dL Total Bilirubin 1.1 H D (0.2-1.0) mg/dL AST 20 (15-37) U/L ALT 24 (12-78) U/L Alkaline Phosphatase 92 (46-116) U/L Total Protein 7.3 (6.4-8.2) g/dL Albumin 3.0 L (3.4-5.0) g/dL Globulin 4.3 H (2.3-3.5) g/dL Albumin/Globulin Ratio 0.7 L (1.2-2.2) Meds: Medications Discontinued Medications Generic Name Dose Route Start Last Admin Trade Name Freq PRN Reason Stop Dose Admin Albuterol 2.5 mg 06/03/18 09:08 06/03/18 09:25 Proventil Neb Soln NEB 06/03/18 09:09 2.5 mg ONETIME ONE Administration Albuterol 2.5 mg 06/03/18 11:13 06/03/18 11:45 Proventil Neb Soln NEB 06/03/18 11:14 2.5 mg ONETIME ONE Administration Methylprednisolone Sodium Succinate 125 mg 06/03/18 09:46 06/03/18 10:13 Solu-Medrol IVPUSH 06/03/18 09:47 125 mg ONETIME ONE Administration - Re-Assessments/Exams Free Text/Narrative Re-Assessment/Exam: 06/03/18 12:24 pt had had 2 nebs while in the ER, He was given solumedrol. He is maintaining a good o@ sat. He has some atelectasis in the rt lung base and he has some fluid in the fissure. 06/03/18 12:27 pt is maintaining a good o2 sat and he does seem fairly comfortable. Departure - Departure Time of Disposition: 12:29 Disposition: Home, Self-Care 01 Condition: Fair Clinical Impression: Bronchospasm, Atelectasis of right lung, Renal failure - Discharge Information Referrals: PCP,None [Primary Care Provider] - Forms: ED Department Discharge Care Plan Goals: finish the augmentin, keep [facility] [place] [facility] 13, predisone 20mg for 2 days, 15 mg for 2 days, then 10 ng for 3 days, Use the nebulizer every 6 hours for the next few days. rtc if problems. Be sure Pt keeps all dialsis appts. - My Orders Last 24 Hours: My Active Orders 06/03/18 09:08 RT Aerosol Therapy [RC] ASDIRECTED 06/03/18 11:13 RT Aerosol Therapy [RC] ASDIRECTED - Assessment/Plan Last 24 Hours: My Active Orders 06/03/18 09:08 RT Aerosol Therapy [RC] ASDIRECTED 06/03/18 11:13 RT Aerosol Therapy [RC] ASDIRECTED
[2018-06-03 09:21] VITALS: BP 132/83
--- NOTE | 2018-06-03 09:34 | CRLCR ---
Indication: Shortness of breath. Technique: PA and lateral view of the chest were obtained. Comparison: March 08, 2018. Findings: Fluid is identified within the right major fissure. A small right pleural effusion is identified. The heart is normal in size. Right basilar atelectasis identified. A right subclavian/axillary artery stent is identified. No pneumothorax is identified. Impression: Small right pleural effusion with fluid within the right major fissure. Dictated by Maryellen Cherry MD @ Jun 03 2018 9:31AM Signed by Dr. Maryellen Cherry @ Jun 03 2018 9:31AM
[2018-06-03] MEDS ORDERED: methylPREDNISolone Sodium Succinate 125 MG/2 ML SDV IVPUSH ONE (09:46)
== END 2018-06-03 12:43 | disposition home or self-care (01) ==
LOC: JP.ED 08:45
DX: J98.01 Acute bronchospasm (principal); J98.11 Atelectasis; N19 Unspecified kidney failure; I10 Essential (primary) hypertension; I25.2 Old myocardial infarction; I25.10 Atherosclerotic heart disease of native coronary artery without angina pectoris; Z79.899 Other long term (current) drug therapy; Z79.82 Long term (current) use of aspirin; Z99.2 Dependence on renal dialysis
CPT/HCPCS: 36415; 71046; 80053; 85025; 87804; 94640; 96374; 99284; J2930

== ENCOUNTER 2018-06-04 16:03 | Emergency (ER) | payer MEDICARE ==
[2018-06-04 16:15] VITALS: BP 127/81
--- NOTE | 2018-06-04 16:39 | EDM.PDOC ---
ED HPI GENERAL MEDICAL PROBLEM - General Chief Complaint: Chest Pain Stated Complaint: SHORTNESS OF BREATH Time Seen by Provider: 06/04/18 16:15 Source of Information: Reports: Patient History Limitations: Reports: No Limitations - History of Present Illness INITIAL COMMENTS - FREE TEXT/NARRATIVE: pt arrived with sob and some wheezing. he has not had a fever. Onset: Gradual, Other ( past week. ) Duration: Hour(s): Location: Reports: Chest Associated Symptoms: Reports: No Other Symptoms - Related Data Allergies Allergy/AdvReac Type Severity Reaction Status Date / Time No Known Allergies Allergy Verified 05/26/18 09:16 Home Meds: Home Meds Magnesium Hydroxide [Milk of Magnesia] 30 ml PO DAILY PRN 04/25/17 [History] Aspirin [Adult Low Dose Aspirin EC] 81 mg PO DAILY 12/12/17 [History] Calcium Acetate [PhosLo] 2 tab PO TID 12/12/17 [History] Ipratropium/Albuterol Sulfate [Iprat-Albut 0.5-3(2.5) MG/3 ML] 3 ml IH Q6H PRN 12/12/17 [History] Acetaminophen [Tylenol] 325 mg PO Q4H PRN 02/20/18 [History] Albuterol Sulfate 1.25 mg IH QID 02/20/18 [History] Budesonide [Pulmicort] 0.5 mg IH BID 02/20/18 [History] Cinacalcet [Sensipar] 30 mg PO DAILY 02/20/18 [History] Clopidogrel [Plavix] 75 mg PO DAILY 02/20/18 [History] Lanthanum Carbonate [Fosrenol] 1,000 mg PO TID 02/20/18 [History] Lidocaine 5% [Lidoderm 5%] 1 patch TOP DAILY 02/20/18 [History] Magnesium Chloride [Mag-64] 2 tab PO DAILY 02/20/18 [History] Metoprolol Succinate [Toprol XL] 25 mg PO DAILY 02/20/18 [History] Pantoprazole Sodium [Protonix] 40 mg PO BID 02/20/18 [History] Patiromer Calcium Sorbitex [Veltassa] 8.4 gm PO DAILY 02/20/18 [History] Polyethylene Glycol 3350 [Miralax] 17 gm PO DAILY PRN MDD cons 02/20/18 [History ] Sennosides/Docusate Sodium [Senna Plus Tablet] 2 tab PO BID 02/20/18 [History] Tiotropium [Spiriva HandiHaler] 1 cap INH DAILY 02/20/18 [History] traMADol [Ultram] 1 tab PO TID PRN 02/20/18 [History] Midodrine 5 mg PO BID 03/08/18 [History] Amoxicillin/Clavulanate K [Augmentin 875-125 MG] 1 tab PO BID 05/26/18 [History] Past Medical History HEENT History: Reports: None Cardiovascular History: Reports: CAD, High Cholesterol, Hypertension, [place] Respiratory History: Reports: SOB Gastrointestinal History: Reports: Chronic Constipation, Chronic Diarrhea Genitourinary History: Reports: Dialysis, Renal Disease Endocrine/Metabolic History: Reports: Obesity/BMI 30+ Hematologic History: Reports: Anemia Dermatologic History: Reports: Other (See Below) Other Dermatologic History: dry skin - Infectious Disease History Infectious Disease History: Reports: Chicken Pox - Past Surgical History Head Surgeries/Procedures: Reports: None HEENT Surgical History: Reports: Oral Surgery Cardiovascular Surgical History: Reports: Coronary Artery Stent, Vascular Surgery Respiratory Surgical History: Reports: Thoracentesis GI Surgical History: Reports: Colonoscopy, EGD Social & Family History - Family History Family Medical History: Unobtainable - Tobacco Use Smoking Status *Q: Heavy Tobacco Smoker Years of Tobacco use: 50 Packs/Tins Daily: 0.5 - Caffeine Use Caffeine Use: Reports: Coffee, Soda - Recreational Drug Use Recreational Drug Use: No ED ROS GENERAL - Review of Systems Review Of Systems: See Below Constitutional: Reports: Other ( sob) HEENT: Reports: No Symptoms Respiratory: Reports: Shortness of Breath, Wheezing Cardiovascular: Reports: No Symptoms Endocrine: Reports: No Symptoms GI/Abdominal: Reports: No Symptoms : Reports: No Symptoms Musculoskeletal: Reports: No Symptoms Skin: Reports: No Symptoms ED EXAM, GENERAL - Physical Exam Exam: See Below Free Text/Narrative:: pt drove to [employer] to [email or web address] this am. He has been feeling a little more sob this afternooon. He states he has been using his nebs. Exam Limited By: No Limitations General Appearance: Alert, Anxious Ears: Normal TMs Nose: Normal Inspection Throat/Mouth: Normal Inspection Head: Atraumatic Neck: Normal Inspection Respiratory/Chest: Wheezing Cardiovascular: Regular Rate, Rhythm GI/Abdominal: Soft, Non-Tender (Male) Exam: Deferred Rectal (Males) Exam: Deferred Back Exam: Normal Inspection Extremities: Other (pt has edema in his ankles. ) Course - Vital Signs Last Recorded V/S: Last Vital Signs Temp 35.1 C L 06/04/18 16:15 Pulse 84 06/04/18 16:15 Resp 17 06/04/18 16:15 BP 127/81 06/04/18 16:15 Pulse Ox 97 06/04/18 16:15 - Orders/Labs/Meds Labs: Laboratory Tests 06/04/18 06/04/18 Range/Units 17:24 17:24 WBC 14.9 H (4.5-11.0) K/uL RBC 3.76 L (4.30-5.90) M/uL Hgb 10.5 L (12.0-15.0) g/dL Hct 33.2 L (40.0-54.0) % MCV 88 (80-98) fL MCH 28 (27-31) pg MCHC 32 (32-36) % Plt Count 201 (150-400) K/uL Neut % (Auto) 87 H (36-66) % Lymph % (Auto) 5 L (24-44) % [place] % (Auto) 7 H (2-6) % Eos % (Auto) 0 L (2-4) % Baso % (Auto) 0 (0-1) % Troponin I 0.050 (0.000-0.056) ng/mL Meds: Medications Discontinued Medications Generic Name Dose Route Start Last Admin Trade Name Romulo PRN Reason Stop Dose Admin Albuterol/Ipratropium 3 ml 06/04/18 16:50 06/04/18 17:00 Duoneb 3.0-0.5 Mg/3 Ml NEB 06/04/18 16:51 3 ml ONETIME ONE Administration Guaifenesin/Codeine Phosphate 10 ml 06/04/18 16:49 06/04/18 17:00 Robitussin Ac PO 06/04/18 16:50 10 ml ONETIME ONE Administration Tramadol HCl 50 mg 06/04/18 16:48 06/04/18 17:00 Ultram PO 06/04/18 16:49 50 mg ONETIME ONE Administration - Re-Assessments/Exams Free Text/Narrative Re-Assessment/Exam: 06/06/18 22:32 pt remained stable and was advised to keep his dialysis appt . Departure - Departure Time of Disposition: 17:42 Disposition: Home, Self-Care 01 Condition: Fair Clinical Impression: Atelectasis of right lung, Fluid overload - Discharge Information Instructions: Atelectasis, Adult Referrals: PCP,None [Primary Care Provider] - Forms: ED Department Discharge Care Plan Goals: continue augmentin, predisone, and the nebulizer treatments, robitussin ac 1-2 tsp q6h prn for cough. keep dialysis appt tomorrow.
--- NOTE | 2018-06-04 16:42 | EDM.PDOC ---
<KassandrajuanamissyAlyson M - Last Filed: 06/04/18 16:37> ED HPI GENERAL MEDICAL PROBLEM - General Chief Complaint: Chest Pain Stated Complaint: SHORTNESS OF BREATH Time Seen by Provider: 06/04/18 16:20 Source of Information: Reports: Patient History Limitations: Reports: No Limitations - History of Present Illness Onset: Gradual Onset Date: 06/03/18 Location: Reports: Chest (describes ats very tight in his chest and severe pain whenever he coughs) Quality: Reports: Stabbing (in his central chest. ) Improves with: Reports: Other (denies pain at rest) - Related Data Allergies Allergy/AdvReac Type Severity Reaction Status Date / Time No Known Allergies Allergy Verified 05/26/18 09:16 Home Meds: Home Meds Magnesium Hydroxide [Milk of Magnesia] 30 ml PO DAILY PRN 04/25/17 [History] Aspirin [Adult Low Dose Aspirin EC] 81 mg PO DAILY 12/12/17 [History] Calcium Acetate [PhosLo] 2 tab PO TID 12/12/17 [History] Ipratropium/Albuterol Sulfate [Iprat-Albut 0.5-3(2.5) MG/3 ML] 3 ml IH Q6H PRN 12/12/17 [History] Acetaminophen [Tylenol] 325 mg PO Q4H PRN 02/20/18 [History] Albuterol Sulfate 1.25 mg IH QID 02/20/18 [History] Budesonide [Pulmicort] 0.5 mg IH BID 02/20/18 [History] Cinacalcet [Sensipar] 30 mg PO DAILY 02/20/18 [History] Clopidogrel [Plavix] 75 mg PO DAILY 02/20/18 [History] Lanthanum Carbonate [Fosrenol] 1,000 mg PO TID 02/20/18 [History] Lidocaine 5% [Lidoderm 5%] 1 patch TOP DAILY 02/20/18 [History] Magnesium Chloride [Mag-64] 2 tab PO DAILY 02/20/18 [History] Metoprolol Succinate [Toprol XL] 25 mg PO DAILY 02/20/18 [History] Pantoprazole Sodium [Protonix] 40 mg PO BID 02/20/18 [History] Patiromer Calcium Sorbitex [Veltassa] 8.4 gm PO DAILY 02/20/18 [History] Polyethylene Glycol 3350 [Miralax] 17 gm PO DAILY PRN MDD cons 02/20/18 [History ] Sennosides/Docusate Sodium [Senna Plus Tablet] 2 tab PO BID 02/20/18 [History] Tiotropium [Spiriva HandiHaler] 1 cap INH DAILY 02/20/18 [History] traMADol [Ultram] 1 tab PO TID PRN 02/20/18 [History] Midodrine 5 mg PO BID 03/08/18 [History] Amoxicillin/Clavulanate K [Augmentin 875-125 MG] 1 tab PO BID 05/26/18 [History] Past Medical History HEENT History: Reports: None Cardiovascular History: Reports: CAD, High Cholesterol, Hypertension, [place] Respiratory History: Reports: SOB Gastrointestinal History: Reports: Chronic Constipation, Chronic Diarrhea Genitourinary History: Reports: Dialysis, Renal Disease Endocrine/Metabolic History: Reports: Obesity/BMI 30+ Hematologic History: Reports: Anemia Dermatologic History: Reports: Other (See Below) Other Dermatologic History: dry skin - Infectious Disease History Infectious Disease History: Reports: Chicken Pox - Past Surgical History Head Surgeries/Procedures: Reports: None HEENT Surgical History: Reports: Oral Surgery Cardiovascular Surgical History: Reports: Coronary Artery Stent, Vascular Surgery Respiratory Surgical History: Reports: Thoracentesis GI Surgical History: Reports: Colonoscopy, EGD Social & Family History - Family History Family Medical History: Unobtainable - Tobacco Use Smoking Status *Q: Heavy Tobacco Smoker Years of Tobacco use: 50 Packs/Tins Daily: 0.5 - Caffeine Use Caffeine Use: Reports: Coffee, Soda - Recreational Drug Use Recreational Drug Use: No ED ROS GENERAL - Review of Systems Review Of Systems: See Below Constitutional: Reports: No Symptoms HEENT: Reports: No Symptoms Respiratory: Reports: Cough, Sputum (will obtain sputum sample) Cardiovascular: Reports: Other (upon careful history taking, patient states ' pain centers around his coughing spells'.) Endocrine: Reports: No Symptoms GI/Abdominal: Reports: No Symptoms : Reports: No Symptoms Musculoskeletal: Reports: No Symptoms Skin: Reports: No Symptoms ED EXAM, GENERAL - Physical Exam Exam: See Below Exam Limited By: No Limitations General Appearance: Alert, Mild Distress Eye Exam: Bilateral Eye: EOMI, PERRL Ears: Hearing Grossly Normal Nose: Normal Inspection, No Blood Throat/Mouth: Normal Inspection, No Airway Compromise Head: Atraumatic, Normocephalic Neck: Normal Inspection, Non-Tender Respiratory/Chest: Chest Non-Tender, Other (diminished lung sounds throughout all mejia) Peripheral Pulses: 1+: Dorsalis Pedis (L), Dorsalis Pedis (R) GI/Abdominal: Normal Bowel Sounds Extremities: Other (2+ edema bilaterally to lower legs, 3+ at ankles. ) Neurological: Alert, Oriented, CN II-XII Intact, Normal Cognition Psychiatric: Normal Affect, Normal Mood Skin Exam: Warm, Dry, Intact, Normal Color, No Rash Course - Vital Signs Text/Narrative:: Patient comes to ER with complaints of chest pain and weakness today. Was seen in ER yesterday, given nebulizer treatment, IV solumedrol and PO tapering dose prescription. Patient states he took his antibiotics yesterday and his nebulizer today. Today seems weaker and his coughing has increased. He describes his pain as tightness in his chest when he coughs that resolves between coughing spells. Oxygen sats in ER at 97% on room. Nebulizer treatment today, PO Robitussin given , Ultram given. Chest xray one view obtained and compared to yesterday's; grossly similar. Last Recorded V/S: Last Vital Signs Temp 35.1 C L 06/04/18 16:15 Pulse 84 06/04/18 16:15 Resp 17 06/04/18 16:15 BP 127/81 06/04/18 16:15 Pulse Ox 97 06/04/18 16:15 - Orders/Labs/Meds Labs: Laboratory Tests 06/04/18 06/04/18 Range/Units 17:24 17:24 WBC 14.9 H (4.5-11.0) K/uL RBC 3.76 L (4.30-5.90) M/uL Hgb 10.5 L (12.0-15.0) g/dL Hct 33.2 L (40.0-54.0) % MCV 88 (80-98) fL MCH 28 (27-31) pg MCHC 32 (32-36) % Plt Count 201 (150-400) K/uL Neut % (Auto) 87 H (36-66) % Lymph % (Auto) 5 L (24-44) % [place] % (Auto) 7 H (2-6) % Eos % (Auto) 0 L (2-4) % Baso % (Auto) 0 (0-1) % Troponin I 0.050 (0.000-0.056) ng/mL Meds: Medications Discontinued Medications Generic Name Dose Route Start Last Admin Trade Name Freq PRN Reason Stop Dose Admin Albuterol/Ipratropium 3 ml 06/04/18 16:50 06/04/18 17:00 Duoneb 3.0-0.5 Mg/3 Ml NEB 06/04/18 16:51 3 ml ONETIME ONE Administration Guaifenesin/Codeine Phosphate 10 ml 06/04/18 16:49 06/04/18 17:00 Robitussin Ac PO 06/04/18 16:50 10 ml ONETIME ONE Administration Tramadol HCl 50 mg 06/04/18 16:48 06/04/18 17:00 Ultram PO 06/04/18 16:49 50 mg ONETIME ONE Administration Departure - Departure Disposition: Home, Self-Care 01 Clinical Impression: Atelectasis of right lung, Fluid overload - Discharge Information Instructions: Atelectasis, Adult Referrals: PCP,None [Primary Care Provider] - Forms: ED Department Discharge Care Plan Goals: continue augmentin, predisone, and the nebulizer treatments, robitussin ac 1-2 tsp q6h prn for cough. keep dialysis appt tomorrow. <Sherin Frey - Last Filed: 06/06/18 22:26> ED ROS GENERAL - Review of Systems Review Of Systems: See Below ED EXAM, GENERAL - Physical Exam Exam: See Below Departure - Departure Time of Disposition: 18:45 Condition: Fair
[2018-06-04] MEDS ORDERED: traMADol 50 MG Tab PO ONE (16:48)
[2018-06-04] MEDS ORDERED: Codeine/guaiFENesin 100mg-10 MG/5 ML Syrup 10 ML Cup PO ONE (16:49)
[2018-06-04] MEDS ORDERED: Albuterol/Ipratropium 3.0-0.5 MG/3 ML Neb Soln NEB ONE (16:50)
--- NOTE | 2018-06-04 17:05 | CRLCR ---
INDICATION: Chest pain, cough TECHNIQUE: Chest 2 views. COMPARISON: Chest radiograph 06/03/2018 FINDINGS: Cardiomediastinal silhouette: Normal heart size. Atherosclerotic calcification of the aortic arch. Lungs and pleural spaces: Hazy opacity projecting over the right lower lung zone is less prominent compared to the radiograph of 06/03/2018, likely reflecting decreased fluid within the major fissure. There is a minimal amount of fluid within the minor fissure, also decreased. Left lung is clear. No pneumothorax. Bones and soft tissues: Right upper extremity vascular stent. IMPRESSION: Small right pleural effusion, which appears decreased since 06/03/2018. Dictated by Tiffanie Thomason MD @ 06/04/2018 5:02:15 PM Dictated by: Tiffanie Thomason MD @ 06/04/2018 17:04:00 (Electronically Signed)
== END 2018-06-04 18:41 | disposition home or self-care (01) ==
LOC: JP.ED 16:03
DX: J98.11 Atelectasis (principal); E87.70 Fluid overload, unspecified; I10 Essential (primary) hypertension; I25.2 Old myocardial infarction; I25.10 Atherosclerotic heart disease of native coronary artery without angina pectoris; F17.210 Nicotine dependence, cigarettes, uncomplicated; Z86.2 Personal history of diseases of the blood and blood-forming organs and certain disorders involving the immune mechanism; Z79.82 Long term (current) use of aspirin; Z95.5 Presence of coronary angioplasty implant and graft
CPT/HCPCS: 36415; 71045; 84484; 85025; 87070; 87205; 93005; 94640; 99285; A9270; J7620-GY

== ENCOUNTER 2018-07-09 22:14 | Emergency (ER) | payer MEDICARE ==
[2018-07-09 22:22] VITALS: BP 106/63
--- NOTE | 2018-07-09 23:06 | EDM.PDOC ---
ED HPI GENERAL MEDICAL PROBLEM - General Chief Complaint: General Stated Complaint: FELL Time Seen by Provider: 07/09/18 22:40 Source of Information: Reports: Patient, EMS History Limitations: Reports: No Limitations - History of Present Illness INITIAL COMMENTS - FREE TEXT/NARRATIVE: 72-year-old male, chronic cough and dialysis patient with known cardiomyopathy and congestive heart failure was visiting his in the skilled nursing, when he had a coughing spell and a sudden episode of diarrhea and became very weak. He did not notice blood in the diarrhea and has not had any since. He felt so weak they called the ambulance, he was stable in route. No fever or chills. No hypoxic episode. He is due for a dialysis run in the morning. He admits that he' s been weak and getting weaker for several months. He continues to smoke. Duration: Minutes: (Symptoms lasted for 10-15 minutes) Improves with: Reports: Other (Apparently just time resolved his symptoms) Worsens with: Reports: Other (Coughing initiated the symptoms and diarrhea) Associated Symptoms: Reports: Cough, Other (Diarrhea). Denies: Confusion, Fever /Chills, Nausea/Vomiting - Related Data Allergies Allergy/AdvReac Type Severity Reaction Status Date / Time No Known Allergies Allergy Verified 07/09/18 22:23 Home Meds: Home Meds Aspirin [Adult Low Dose Aspirin EC] 81 mg PO DAILY 12/12/17 [History] Calcium Acetate [PhosLo] 2 tab PO TID 12/12/17 [History] Ipratropium/Albuterol Sulfate [Iprat-Albut 0.5-3(2.5) MG/3 ML] 3 ml IH Q6H PRN 12/12/17 [History] Acetaminophen [Tylenol] 325 mg PO Q4H PRN 02/20/18 [History] Albuterol Sulfate 1.25 mg IH QID 02/20/18 [History] Budesonide [Pulmicort] 0.5 mg IH BID 02/20/18 [History] Cinacalcet [Sensipar] 30 mg PO DAILY 02/20/18 [History] Clopidogrel [Plavix] 75 mg PO DAILY 02/20/18 [History] Lanthanum Carbonate [Fosrenol] 1,000 mg PO TID 02/20/18 [History] Lidocaine 5% [Lidoderm 5%] 1 patch TOP DAILY 02/20/18 [History] Magnesium Chloride [Mag-64] 2 tab PO DAILY 02/20/18 [History] Metoprolol Succinate [Toprol XL] 25 mg PO DAILY 02/20/18 [History] Pantoprazole Sodium [Protonix] 40 mg PO BID 02/20/18 [History] Patiromer Calcium Sorbitex [Veltassa] 8.4 gm PO DAILY 02/20/18 [History] Polyethylene Glycol 3350 [Miralax] 17 gm PO DAILY PRN MDD cons 02/20/18 [History ] Sennosides/Docusate Sodium [Senna Plus Tablet] 2 tab PO BID 02/20/18 [History] Tiotropium [Spiriva HandiHaler] 1 cap INH DAILY 02/20/18 [History] traMADol [Ultram] 1 tab PO TID PRN 02/20/18 [History] Midodrine 5 mg PO BID 03/08/18 [History] atorvaSTATin [Lipitor] 20 mg PO DAILY 07/09/18 [History] Past Medical History HEENT History: Reports: None, Impaired Vision Cardiovascular History: Reports: CAD, Heart Failure, High Cholesterol, [place]pertension, [place], SOB on Exertion, Other (See Below) Other Cardiovascular History: ejection fraction 21-30% Respiratory History: Reports: SOB Gastrointestinal History: Reports: Chronic Constipation, Chronic Diarrhea, GI Bleed Genitourinary History: Reports: Chronic Renal Insuffiency, Dialysis, Renal Disease Musculoskeletal History: Reports: Arthritis Endocrine/Metabolic History: Reports: Diabetes, Type II, Obesity/BMI 30+ Hematologic History: Reports: Anemia Dermatologic History: Reports: Other (See Below) Other Dermatologic History: dry skin - Infectious Disease History Infectious Disease History: Reports: Chicken Pox - Past Surgical History Head Surgeries/Procedures: Reports: None HEENT Surgical History: Reports: Oral Surgery Cardiovascular Surgical History: Reports: Coronary Artery Stent, Vascular Surgery, Other (See Below) Other Cardiovascular Surgeries/Procedures: arteriovenous shunt Respiratory Surgical History: Reports: Thoracentesis GI Surgical History: Reports: Colonoscopy, EGD Social & Family History - Family History Family Medical History: Unobtainable - Tobacco Use Smoking Status *Q: Current Every Day Smoker Years of Tobacco use: 25 Packs/Tins Daily: 0.5 - Caffeine Use Caffeine Use: Reports: Coffee, Tea ED ROS GENERAL - Review of Systems Review Of Systems: See Below Constitutional: Reports: Malaise, Weakness. Denies: Fever, Chills, Decreased Appetite HEENT: Reports: No Symptoms Respiratory: Reports: Cough. Denies: Sputum Cardiovascular: Denies: Chest Pain Endocrine: Reports: Fatigue GI/Abdominal: Reports: Diarrhea (One episode tonight, no pain) Musculoskeletal: Reports: Other (Patient has significant lower extremity edema which is chronic) Skin: Reports: Pallor, Other (Numerous excoriations and bruises on the lower extremities) ED EXAM, GENERAL - Physical Exam Exam: See Below Exam Limited By: No Limitations General Appearance: Alert, No Apparent Distress Eye Exam: Bilateral Eye: Other (Somewhat pale conjunctiva) Head: Atraumatic Respiratory/Chest: No Respiratory Distress, Other (A few expiratory wheezes are heard bilaterally) Cardiovascular: Regular Rate, Rhythm GI/Abdominal: Soft, Non-Tender Extremities: Pedal Edema (Significant 2+ symmetric lower extremity edema is present) Neurological: Alert, Oriented Psychiatric: Normal Affect, Normal Mood Skin Exam: Warm, Dry Course - Vital Signs Last Recorded V/S: Last Vital Signs Temp 96.5 F 07/09/18 22:28 Pulse 68 07/09/18 22:28 Resp 11 L 07/09/18 22:28 BP 106/63 07/09/18 22:28 Pulse Ox 96 07/09/18 22:28 Orthostatic Blood Pressure [ 99/63 Standing] Orthostatic Blood Pressure [ 101/57 Sitting] Orthostatic Blood Pressure [ 106/63 Supine] - Orders/Labs/Meds Labs: Laboratory Tests 07/09/18 07/09/18 07/09/18 Range/Units 23:01 23:01 23:01 WBC 10.5 (4.5-11.0) K/uL RBC 4.09 L (4.30-5.90) M/uL Hgb 10.7 L (12.0-15.0) g/dL Hct 34.9 L (40.0-54.0) % MCV 85 (80-98) fL MCH 26 L (27-31) pg MCHC 31 L (32-36) % Plt Count 192 (150-400) K/uL Neut % (Auto) 75 H (36-66) % Lymph % (Auto) 14 L (24-44) % [place] % (Auto) 11 H (2-6) % Eos % (Auto) 0 L (2-4) % Baso % (Auto) 0 (0-1) % Sodium 132 L (140-148) mmol/L Potassium 4.7 (3.6-5.2) mmol/L Chloride 94 L (100-108) mmol/L Carbon Dioxide 30 (21-32) mmol/L Anion Gap 12.7 (5.0-14.0) mmol/L BUN 68 H (7-18) mg/dL Creatinine 6.5 H* (0.8-1.3) mg/dL Est Cr Clr Drug Dosing 10.76 mL/min Estimated GFR (MDRD) 8 L (>60) Glucose 104 (74-106) mg/dL Calcium 9.6 (8.5-10.1) mg/dL Troponin I 0.062 H* (0.000-0.056) ng/mL - Re-Assessments/Exams Free Text/Narrative Re-Assessment/Exam: 07/09/18 23:06 Orthostatic blood pressures were obtained and were stable. CBC BMP and troponin were obtained. 07/09/18 23:31 Creatinine returned 6.5, troponin 0.06 which is typical for him prior to dialysis. Hemoglobin was reassuring at 10.7. White count was normal. Patient continued to be stable, relatively asymptomatic and ambulated around the room without difficulty. No further diarrhea, but he did continue his persistent cough. He'll be discharged with some Tessalon Perles to use for cough suppression over the next several days and encouraged to contact [facility] to discuss his chronic cough. Departure - Departure Time of Disposition: 23:52 Disposition: Home, Self-Care 01 Condition: Good Clinical Impression: Chronic cough, Near syncope, Chronic kidney disease with end stage renal failure on dialysis - Discharge Information Instructions: Cough, Adult, [id number] Referrals: PCP,None [Primary Care Provider] - Forms: ED Department Discharge Care Plan Goals: Continue your current medications, fill prescription and take as prescribed for cough suppression. Consider discussing your chronic cough with your primary physician this week. It would be extremely helpful if you are able to quit smoking.
== END 2018-07-10 01:08 | disposition home or self-care (01) ==
LOC: JP.ED 22:14
DX: R05 Cough (principal); R55 Syncope and collapse; I13.11 Hypertensive heart and chronic kidney disease without heart failure, with stage 5 chronic kidney disease, or end stage renal disease; E11.22 Type 2 diabetes mellitus with diabetic chronic kidney disease; N18.6 End stage renal disease; I50.9 Heart failure, unspecified; D63.1 Anemia in chronic kidney disease; Z99.2 Dependence on renal dialysis; Z79.82 Long term (current) use of aspirin; Z79.899 Other long term (current) drug therapy; R53.1 Weakness; I13.2 Hypertensive heart and chronic kidney disease with heart failure and with stage 5 chronic kidney disease, or end stage renal disease; E78.00 Pure hypercholesterolemia, unspecified; I25.2 Old myocardial infarction; F17.210 Nicotine dependence, cigarettes, uncomplicated
CPT/HCPCS: 36415; 71046; 80048; 80053; 84484; 85025; 94640; 99283; 99284; 99285; J7030; J7620-GY

== ENCOUNTER 2018-07-10 21:27 | Emergency (ER) | payer MEDICARE ==
[2018-07-10] MEDS ORDERED: Albuterol/Ipratropium 3.0-0.5 MG/3 ML Neb Soln ONE (22:01)
[2018-07-10] MEDS ORDERED: Sodium Chloride 0.9% 1,000 ML IV ONE (22:04)
--- NOTE | 2018-07-10 22:04 | CRLCR ---
INDICATION: dyspnea TECHNIQUE: Chest 2 views. COMPARISON: 06/04/18 FINDINGS: Cardiovascular and mediastinum: Heart size and vasculature are normal in caliber and appearance. Mediastinum is within normal limits. Lungs and pleural spaces: Lungs are clear. No sign of infiltrate or mass. No sign of pleural effusion. No pneumothorax. Bones and soft tissues: No significant findings. IMPRESSION: Unremarkable chest. Dictated by: Rene Schmidt MD @ 07/10/2018 22:02:52 (Electronically Signed)
[2018-07-10] MEDS ORDERED: Albuterol/Ipratropium 3.0-0.5 MG/3 ML Neb Soln NEB ONE (22:05)
[2018-07-10 22:09] VITALS: BP 124/73
--- NOTE | 2018-07-10 22:19 | EDM.PDOC ---
ED HPI GENERAL MEDICAL PROBLEM - General Chief Complaint: General Stated Complaint: MEDICAL Time Seen by Provider: 07/10/18 21:40 Source of Information: Reports: Patient, EMS History Limitations: Reports: No Limitations - History of Present Illness INITIAL COMMENTS - FREE TEXT/NARRATIVE: 72-year-old male who is in the emergency room last night for weakness, went home and has had persistent diarrhea and worsening cough. He was supposed to get dialysis this morning but felt too weak and called the ambulance again today. Last night I gave him Tessalon Perles for cough suppression, he did not fill the prescription. Denies nausea or vomiting. Onset: Gradual Associated Symptoms: Reports: Cough, Loss of Appetite, Malaise, Shortness of Breath, Weakness. Denies: Chest Pain, Fever/Chills, Nausea/Vomiting generalized Pain Score (Numeric/FACES): 6 - Related Data Allergies Allergy/AdvReac Type Severity Reaction Status Date / Time No Known Allergies Allergy Verified 07/10/18 21:34 Home Meds: Home Meds Aspirin [Adult Low Dose Aspirin EC] 81 mg PO DAILY 12/12/17 [History] Calcium Acetate [PhosLo] 2 tab PO TID 12/12/17 [History] Ipratropium/Albuterol Sulfate [Iprat-Albut 0.5-3(2.5) MG/3 ML] 3 ml IH Q6H PRN 12/12/17 [History] Acetaminophen [Tylenol] 325 mg PO Q4H PRN 02/20/18 [History] Albuterol Sulfate 1.25 mg IH QID 02/20/18 [History] Budesonide [Pulmicort] 0.5 mg IH BID 02/20/18 [History] Cinacalcet [Sensipar] 30 mg PO DAILY 02/20/18 [History] Clopidogrel [Plavix] 75 mg PO DAILY 02/20/18 [History] Lanthanum Carbonate [Fosrenol] 1,000 mg PO TID 02/20/18 [History] Lidocaine 5% [Lidoderm 5%] 1 patch TOP DAILY 02/20/18 [History] Magnesium Chloride [Mag-64] 2 tab PO DAILY 02/20/18 [History] Metoprolol Succinate [Toprol XL] 25 mg PO DAILY 02/20/18 [History] Pantoprazole Sodium [Protonix] 40 mg PO BID 02/20/18 [History] Patiromer Calcium Sorbitex [Veltassa] 8.4 gm PO DAILY 02/20/18 [History] Polyethylene Glycol 3350 [Miralax] 17 gm PO DAILY PRN MDD cons 02/20/18 [History ] Sennosides/Docusate Sodium [Senna Plus Tablet] 2 tab PO BID 02/20/18 [History] Tiotropium [Spiriva HandiHaler] 1 cap INH DAILY 02/20/18 [History] traMADol [Ultram] 1 tab PO TID PRN 02/20/18 [History] Midodrine 5 mg PO BID 03/08/18 [History] atorvaSTATin [Lipitor] 20 mg PO DAILY 07/09/18 [History] Past Medical History HEENT History: Reports: None, Impaired Vision Cardiovascular History: Reports: CAD, Heart Failure, High Cholesterol, Hypertension, [place], SOB on Exertion, Other (See Below) Other Cardiovascular History: ejection fraction 21-30% Respiratory History: Reports: SOB Gastrointestinal History: Reports: Chronic Constipation, Chronic Diarrhea, GI Bleed Genitourinary History: Reports: Chronic Renal Insuffiency, Dialysis, Renal Disease Musculoskeletal History: Reports: Arthritis Endocrine/Metabolic History: Reports: Diabetes, Type II, Obesity/BMI 30+ Hematologic History: Reports: Anemia Dermatologic History: Reports: Other (See Below) Other Dermatologic History: dry skin - Infectious Disease History Infectious Disease History: Reports: Chicken Pox - Past Surgical History Head Surgeries/Procedures: Reports: None HEENT Surgical History: Reports: Oral Surgery Cardiovascular Surgical History: Reports: Coronary Artery Stent, Vascular Surgery, Other (See Below) Other Cardiovascular Surgeries/Procedures: arteriovenous shunt Respiratory Surgical History: Reports: Thoracentesis GI Surgical History: Reports: Colonoscopy, EGD Social & Family History - Family History Family Medical History: Unobtainable - Tobacco Use Smoking Status *Q: Current Every Day Smoker Years of Tobacco use: 52 Packs/Tins Daily: 0.5 - Caffeine Use Caffeine Use: Reports: Coffee, Tea - Recreational Drug Use Recreational Drug Use: No ED ROS GENERAL - Review of Systems Review Of Systems: See Below Constitutional: Reports: Malaise, Weakness, Decreased Appetite HEENT: Reports: No Symptoms Respiratory: Reports: Shortness of Breath, Cough. Denies: Sputum Cardiovascular: Reports: Lightheadedness. Denies: Chest Pain, Palpitations GI/Abdominal: Reports: Diarrhea. Denies: Abdominal Pain, Hematochezia, Nausea, Vomiting : Reports: No Symptoms Skin: Reports: Bruising Neurological: Reports: Weakness. Denies: Headache ED EXAM, GENERAL - Physical Exam Exam: See Below Exam Limited By: No Limitations General Appearance: Alert, No Apparent Distress Eye Exam: Bilateral Eye: EOMI (No jaundice) Throat/Mouth: Normal Inspection (Advanced dental caries) Head: Atraumatic Respiratory/Chest: Wheezing (Diffuse expiratory wheezing and decreased air movement) Cardiovascular: Regular Rate, Rhythm (Distant heart sounds) GI/Abdominal: Soft, Non-Tender Extremities: Pedal Edema (Symmetric lower extremity edema, numerous excoriations on the arms and legs with scattered bruises) Neurological: Alert, Oriented Psychiatric: Depressed Mood, Flat Affect Course - Vital Signs Last Recorded V/S: Last Vital Signs Temp 99.1 F 07/10/18 21:32 Pulse 83 07/10/18 22:08 Resp 20 07/10/18 22:08 BP 124/73 07/10/18 22:08 Pulse Ox 94 L 07/10/18 22:08 - Orders/Labs/Meds Orders: Active Orders 24 hr Category Date Time Status RT Aerosol Therapy [RC] ASDIRECTED Care 07/10/18 22:05 Active Labs: Laboratory Tests 07/10/18 07/10/18 Range/Units 21:42 21:42 WBC 13.6 H (4.5-11.0) K/uL RBC 4.37 (4.30-5.90) M/uL Hgb 11.4 L (12.0-15.0) g/dL Hct 36.5 L (40.0-54.0) % MCV 84 (80-98) fL MCH 26 L (27-31) pg MCHC 31 L (32-36) % Plt Count 222 (150-400) K/uL Neut % (Auto) 81 H (36-66) % Lymph % (Auto) 8 L (24-44) % [place] % (Auto) 10 H (2-6) % Eos % (Auto) 0 L (2-4) % Baso % (Auto) 1 (0-1) % Sodium 130 L (140-148) mmol/L Potassium 4.8 (3.6-5.2) mmol/L Chloride 94 L (100-108) mmol/L Carbon Dioxide 23 (21-32) mmol/L Anion Gap 17.8 H (5.0-14.0) mmol/L BUN 81 H* (7-18) mg/dL Creatinine 7.7 H* (0.8-1.3) mg/dL Est Cr Clr Drug Dosing 9.09 mL/min Estimated GFR (MDRD) 7 L (>60) Glucose 87 (74-106) mg/dL Calcium 9.1 (8.5-10.1) mg/dL Total Bilirubin 0.7 (0.2-1.0) mg/dL AST 31 (15-37) U/L ALT 42 (12-78) U/L Alkaline Phosphatase 109 (46-116) U/L Total Protein 7.1 (6.4-8.2) g/dL Albumin 2.9 L (3.4-5.0) g/dL Globulin 4.2 H (2.3-3.5) g/dL Albumin/Globulin Ratio 0.7 L (1.2-2.2) Meds: Medications Discontinued Medications Generic Name Dose Route Start Last Admin Trade Name Freq PRN Reason Stop Dose Admin Albuterol/Ipratropium Confirm 07/10/18 22:01 07/10/18 22:26 Duoneb 3.0-0.5 Mg/3 Ml Administered 07/10/18 22:02 Not Given Dose 3 ml .ROUTE .STK-MED ONE Albuterol/Ipratropium 3 ml 07/10/18 22:05 07/10/18 22:06 Duoneb 3.0-0.5 Mg/3 Ml NEB 07/10/18 22:06 3 ml ONETIME ONE Administration Sodium Chloride 1,000 mls @ 500 mls/hr 07/10/18 22:04 07/10/18 22:38 Normal Saline IV 07/11/18 00:03 125 mls/hr .BOLUS ONE Administration - Re-Assessments/Exams Free Text/Narrative Re-Assessment/Exam: 07/10/18 22:03 Patient was given a DuoNeb, a CBC and CMP were drawn and a two-view chest x-ray obtained. Chest x-ray shows increased fluid in the right major fissure compared to 2 months ago. [facility]. 07/10/18 22:18 Creatinine was 6.5 yesterday up to 7.7 today, BUN up to 81. Patient was given a duo neb providing him some mild relief. Potassium 4.8. I discussed his condition with the hospitalist for the [facility] in [place], I believe he is stable enough for monitoring tonight and then received dialysis in the morning. He was kindly accepted. We will copy his chest x-ray from 2 months ago along with his current chest x-ray and labs and sent with the patient. Departure - Departure Time of Disposition: 23:03 Disposition: DC/Tfer to Other 70 Condition: Fair Clinical Impression: Chronic cough, Weakness, End stage renal failure on dialysis - Discharge Information Referrals: PCP,None [Primary Care Provider] - Forms: ED Department Discharge Care Plan Goals: Patient is to be transferred to the [facility] in [place] for monitoring, treatment, and dialysis tomorrow. He also needs assessment of worsening weakness , diarrhea, and increasing plural effusion. - My Orders Last 24 Hours: My Active Orders 07/10/18 22:05 RT Aerosol Therapy [RC] ASDIRECTED - Assessment/Plan Last 24 Hours: My Active Orders 07/10/18 22:05 RT Aerosol Therapy [RC] ASDIRECTED
== END 2018-07-10 23:05 | disposition other institution (70) ==
LOC: JP.ED 21:27
DX: R05 Cough (principal); R53.1 Weakness; I13.2 Hypertensive heart and chronic kidney disease with heart failure and with stage 5 chronic kidney disease, or end stage renal disease; E11.22 Type 2 diabetes mellitus with diabetic chronic kidney disease; N18.6 End stage renal disease; I50.9 Heart failure, unspecified; D63.1 Anemia in chronic kidney disease; E78.00 Pure hypercholesterolemia, unspecified; I25.2 Old myocardial infarction; F17.210 Nicotine dependence, cigarettes, uncomplicated; Z79.899 Other long term (current) drug therapy; Z79.82 Long term (current) use of aspirin
CPT/HCPCS: 36415; 71046; 80053; 85025; 94640; 99285; J7030; J7620-GY

== ENCOUNTER 2020-04-06 21:00 | Emergency (ER) | payer MEDICARE, MEDICAID ==
--- NOTE | 2020-04-06 21:09 | EDM.PDOC ---
ED HPI GENERAL MEDICAL PROBLEM - General Chief Complaint: Lower Extremity Injury/Pain Stated Complaint: MED VIA [facility] Time Seen by Provider: 04/06/20 21:09 Source of Information: Reports: Patient History Limitations: Reports: No Limitations - History of Present Illness INITIAL COMMENTS - FREE TEXT/NARRATIVE: about 3 weeks ago he was doing leg lifts and 3 days ago he started to have increased pain and he quit doing the leg lifts . He has not fallen or injured his hip. He was demanding pain med immediately. Onset: Other ( started 3 days ago and has gotten worse today. ) Duration: Hour(s): Location: Reports: Lower Extremity, Left Associated Symptoms: Reports: No Other Symptoms - Related Data Allergies Allergy/AdvReac Type Severity Reaction Status Date / Time No Known Allergies Allergy Verified 04/06/20 21:32 Home Meds: Home Meds Aspirin [Adult Low Dose Aspirin EC] 81 mg PO DAILY 12/12/17 [History] Calcium Acetate [PhosLo] 2 tab PO TID 12/12/17 [History] Ipratropium/Albuterol Sulfate [Iprat-Albut 0.5-3(2.5) MG/3 ML] 3 ml IH Q6H PRN 12/12/17 [History] Acetaminophen [Tylenol] 325 mg PO Q4H PRN 02/20/18 [History] Albuterol Sulfate 1.25 mg IH Q4HR PRN 02/20/18 [History] Budesonide [Pulmicort] 0.5 mg IH BID 02/20/18 [History] Cinacalcet [Sensipar] 30 mg PO DAILY 02/20/18 [History] Clopidogrel [Plavix] 75 mg PO DAILY 02/20/18 [History] Lanthanum Carbonate [Fosrenol] 1,000 mg PO TID 02/20/18 [History] Lidocaine 5% [Lidoderm 5%] 1 patch TOP DAILY 02/20/18 [History] Magnesium Chloride [Mag-64] 2 tab PO DAILY 02/20/18 [History] Metoprolol Succinate [Toprol XL] 25 mg PO DAILY 02/20/18 [History] Pantoprazole Sodium [Protonix] 40 mg PO BID 02/20/18 [History] Patiromer Calcium Sorbitex [Veltassa] 8.4 gm PO DAILY 02/20/18 [History] Sennosides/Docusate Sodium [Senna Plus Tablet] 2 tab PO BID 02/20/18 [History] Tiotropium [Spiriva HandiHaler] 1 cap INH DAILY 02/20/18 [History] polyethylene glycoL 3350 [Miralax] 17 gm PO DAILY PRN MDD cons 02/20/18 [History] traMADol [Ultram] 1 tab PO TID PRN 02/20/18 [History] Midodrine 5 mg PO BID 03/08/18 [History] atorvaSTATin [Lipitor] 20 mg PO DAILY 07/09/18 [History] Past Medical History HEENT History: Reports: None, Impaired Vision Cardiovascular History: Reports: CAD, Heart Failure, High Cholesterol, Hypertension, [place], SOB on Exertion, Other (See Below) Other Cardiovascular History: ejection fraction 21-30% Respiratory History: Reports: SOB Gastrointestinal History: Reports: Chronic Constipation, Chronic Diarrhea, GI Bleed Genitourinary History: Reports: Chronic Renal Insuffiency, Dialysis, Renal Disease Musculoskeletal History: Reports: Arthritis Endocrine/Metabolic History: Reports: Diabetes, Type II, Obesity/BMI 30+ Hematologic History: Reports: Anemia Dermatologic History: Reports: Other (See Below) Other Dermatologic History: dry skin - Infectious Disease History Infectious Disease History: Reports: Chicken Pox - Past Surgical History Head Surgeries/Procedures: Reports: None HEENT Surgical History: Reports: Oral Surgery Cardiovascular Surgical History: Reports: Coronary Artery Stent, Vascular Surgery, Other (See Below) Other Cardiovascular Surgeries/Procedures: arteriovenous shunt Respiratory Surgical History: Reports: Thoracentesis GI Surgical History: Reports: Colonoscopy, EGD Male Surgical History: Reports: None Endocrine Surgical History: Reports: None Musculoskeletal Surgical History: Reports: None Dermatological Surgical History: Reports: None Social & Family History - Family History Family Medical History: Unobtainable - Caffeine Use Caffeine Use: Reports: Coffee, Tea Review of Systems - Review of Systems Review Of Systems: See Below Constitutional: Reports: No Symptoms Eyes: Reports: No Symptoms Ears: Reports: No Symptoms Nose: Reports: No Symptoms Mouth/Throat: Reports: No Symptoms Respiratory: Reports: No Symptoms Cardiovascular: Reports: No Symptoms GI/Abdominal: Reports: No Symptoms Genitourinary: Reports: No Symptoms Musculoskeletal: Reports: Other ( acute pain in left groin) Skin: Reports: No Symptoms ED EXAM, GENERAL - Physical Exam Exam: See Below Free Text/Narrative:: pt has been doing alot of leg lifts and he has developed acute pain in the left groin. This has progrssively gotten worse. Exam Limited By: No Limitations General Appearance: Alert, Anxious, Moderate Distress Ears: Normal TMs Nose: Normal Inspection Throat/Mouth: Normal Inspection Head: Atraumatic Neck: Normal Inspection Respiratory/Chest: No Respiratory Distress Cardiovascular: Regular Rate, Rhythm GI/Abdominal: Soft, Non-Tender (Male) Exam: Other (pt is very tender in the left groin area. This area does feel swollen and firm. ) Rectal (Males) Exam: Deferred Back Exam: Normal Inspection Extremities: Other ( tender in the rt groin. ) Neurological: Alert, Oriented, Normal Cognition Course - Vital Signs Last Recorded V/S: Last Vital Signs Temp 35.9 C L 04/06/20 23:30 Pulse 79 04/06/20 23:30 Resp 16 04/06/20 21:09 BP 139/78 04/06/20 23:30 Pulse Ox 96 04/06/20 23:30 - Orders/Labs/Meds Orders: Active Orders 24 hr Category Date Time Status Hip Min 2V or 3V Lt [CR] Stat Exams 04/06/20 22:08 Taken Sodium Chloride 0.9% [Normal Saline] 1,000 ml Med 04/07/20 00:15 Active IV ASDIRECTED Medication Orders Sodium Chloride (Normal Saline) 1,000 mls @ 250 mls/hr IV ASDIRECTED MAICOL Last Admin: 04/07/20 00:19 Dose: 250 mls/hr Documented by: SHANIQUA Labs: Laboratory Tests 04/06/20 04/06/20 04/07/20 Range/Units 22:18 22:18 00:08 WBC 16.7 H (4.5-11.0) K/uL RBC 4.72 (4.30-5.90) M/uL Hgb 14.1 D (12.0-15.0) g/dL Hct 43.9 (40.0-54.0) % MCV 93 (80-98) fL MCH 30 (27-31) pg MCHC 32 (32-36) % Plt Count 224 (150-400) K/uL Neut % (Auto) 83 H (36-66) % Lymph % (Auto) 9 L (24-44) % Bracken % (Auto) 7 H (2-6) % Eos % (Auto) 1 L (2-4) % Baso % (Auto) 0 (0-1) % PT (9.5-12.0) sec INR (0.80-1.20) APTT 26.9 L (27.0-36.0) sec Sodium 136 L (140-148) mmol/L Potassium 5.7 H (3.6-5.2) mmol/L Chloride 97 L (100-108) mmol/L Carbon Dioxide 27 (21-32) mmol/L Anion Gap 17.7 H (5.0-14.0) mmol/L BUN 78 H* (7-18) mg/dL Creatinine 9.6 H* (0.8-1.3) mg/dL Est Cr Clr Drug Dosing 7.08 mL/min Estimated GFR (MDRD) 5 L (>60) Glucose 129 H (74-106) mg/dL Calcium 9.6 (8.5-10.1) mg/dL Total Bilirubin 0.5 (0.2-1.0) mg/dL AST 13 L (15-37) U/L ALT 19 (12-78) U/L Alkaline Phosphatase 109 (46-116) U/L Total Protein 7.4 (6.4-8.2) g/dL Albumin 3.5 (3.4-5.0) g/dL Globulin 3.9 H (2.3-3.5) g/dL Albumin/Globulin Ratio 0.9 L (1.2-2.2) 04/07/20 Range/Units 00:09 WBC (4.5-11.0) K/uL RBC (4.30-5.90) M/uL Hgb (12.0-15.0) g/dL Hct (40.0-54.0) % MCV (80-98) fL MCH (27-31) pg MCHC (32-36) % Plt Count (150-400) K/uL Neut % (Auto) (36-66) % Lymph % (Auto) (24-44) % Bracken % (Auto) (2-6) % Eos % (Auto) (2-4) % Baso % (Auto) (0-1) % PT 11.8 (9.5-12.0) sec INR 1.08 (0.80-1.20) APTT (27.0-36.0) sec Sodium (140-148) mmol/L Potassium (3.6-5.2) mmol/L Chloride (100-108) mmol/L Carbon Dioxide (21-32) mmol/L Anion Gap (5.0-14.0) mmol/L BUN (7-18) mg/dL Creatinine (0.8-1.3) mg/dL Est Cr Clr Drug Dosing mL/min Estimated GFR (MDRD) (>60) Glucose (74-106) mg/dL Calcium (8.5-10.1) mg/dL Total Bilirubin (0.2-1.0) mg/dL AST (15-37) U/L ALT (12-78) U/L Alkaline Phosphatase (46-116) U/L Total Protein (6.4-8.2) g/dL Albumin (3.4-5.0) g/dL Globulin (2.3-3.5) g/dL Albumin/Globulin Ratio (1.2-2.2) Meds: Medications Generic Name Dose Route Start Last Admin Trade Name Freq PRN Reason Stop Dose Admin Sodium Chloride 1,000 mls @ 250 mls/hr 04/07/20 00:15 04/07/20 00:19 Normal Saline IV 250 mls/hr ASDIRECTED MAICOL Administration Discontinued Medications Generic Name Dose Route Start Last Admin Trade Name Freq PRN Reason Stop Dose Admin Hydromorphone HCl 0.5 mg 04/06/20 21:23 04/06/20 21:27 Dilaudid IVPUSH 04/06/20 21:24 0.5 mg ONETIME ONE Administration Oxycodone/Acetaminophen 1 tab 04/06/20 22:02 04/06/20 22:06 Percocet 325-5 Mg PO 04/06/20 22:03 1 tab ONETIME ONE Administration - Re-Assessments/Exams Free Text/Narrative Re-Assessment/Exam: 04/07/20 00:50 pt had a cat scan of the abdoman pelvis and left hip. This reveal gall stones without infection. He was found to have a large intramusular hematoma in the left ilacus and psoas. There was a fair amount of stool present. Departure - Departure Time of Disposition: 00:41 Disposition: Home, Self-Care 01 Condition: Fair Clinical Impression: Nontraumatic psoas hematoma - Discharge Information Referrals: Reggie Rebolledo MD [Primary Care Provider] - Forms: ED Department Discharge Care Plan Goals: cool packs to left groin for the next 2 days then moist warm packs, appt with Dr Rebolledo on tue at [facility], percocet 5/325 q6h prn for pain prunes and stool softners to avoid constipation avoid leg lifts and rigorous activity Sepsis Event Note (ED) - Focused Exam Vital Signs: Vital Signs Temp Pulse Resp BP Pulse Ox 04/06/20 23:30 35.9 C L 79 139/78 96 04/06/20 21:09 35.6 C L 84 16 146/76 H 96 04/06/20 21:02 35.6 C L 84 16 146/76 H 96 - My Orders Last 24 Hours: My Active Orders 04/06/20 22:08 Hip Min 2V or 3V Lt [CR] Stat 04/07/20 00:15 Sodium Chloride 0.9% [Normal Saline] 1,000 ml IV ASDIRECTED - Assessment/Plan Last 24 Hours: My Active Orders 04/06/20 22:08 Hip Min 2V or 3V Lt [CR] Stat 04/07/20 00:15 Sodium Chloride 0.9% [Normal Saline] 1,000 ml IV ASDIRECTED
[2020-04-06] MEDS ORDERED: HYDROmorphone 0.5 MG/0.5 ML Syringe IVPUSH ONE (21:23)
[2020-04-06] MEDS ORDERED: Acetaminophen/oxyCODONE 325-5 MG Tab PO ONE (22:02)
--- NOTE | 2020-04-07 00:04 | CRLCT ---
Indication: Left hip and lower abdominal pain Technique: Nonenhanced axial CT imaging through the abdomen and pelvis. Sagittal and coronal reconstructions are provided. Comparison: None Findings: There is moderate enlargement of the left psoas and iliacus muscles with internal hyperdensity, consistent with intramuscular hematoma. The left psoas muscle measures up to 8 cm in diameter, compared to 4 cm on the right. The right psoas and iliacus muscles are unremarkable. There is no extra muscular retroperitoneal hemorrhage or intraperitoneal hemorrhage. There is unremarkable noncontrast appearance of the liver, spleen, and pancreas. Thin layering hyperdensity in the gallbladder may represent stones or sludge. There is no appreciable gallbladder wall thickening. Diffuse adrenal thickening is noted bilaterally. There is bilateral renal atrophy with diffuse cystic change. There is extensive atherosclerosis of the abdominal aorta, with focal aneurysmal enlargement of the infrarenal aorta measuring up to 3.3 cm in AP dimension. The stomach and duodenum are unremarkable. There are no abnormally dilated small bowel loops. The appendix is not visualized. Diverticulosis is noted in the sigmoid colon. There is no clinical thickening or pericolonic inflammatory stranding to suggest diverticulitis. There is moderate rectal distention with stool, measuring up to 8 cm in diameter, concerning for fecal impaction. Degenerative changes are noted in the spine the included lung bases are clear. Impression: 1. Large intramuscular hematoma involving the left iliacus and psoas muscles. 2. Moderate rectal distention with stool, concerning for fecal impaction. Correlate clinically. 3. Colonic diverticulosis without evidence of diverticulitis. 4. Atherosclerosis of the abdominal aorta with focal irregularity and enlargement measuring up to 3.3 cm. 5. Cholelithiasis. No findings to suggest cholecystitis. Please note that all CT scans at this facility use dose modulation, iterative reconstruction, and/or weight-based dosing when appropriate to reduce radiation dose to as low as reasonably achievable. Dictated by Mane Florez MD @ Apr 06 2020 11:49PM Signed by Dr. Mane Florez @ Apr 07 2020 12:03AM
--- NOTE | 2020-04-07 00:14 | CRLCT ---
Indication: Left hip pain Technique: Nonenhanced axial CT imaging through the pelvis, with sagittal and coronal reconstructions. Small [id number] multiplanar reconstructions were also performed through the left hip. Comparison: CT abdomen pelvis without contrast 04/06/2020 Findings: There is no displaced pelvic fracture. The proximal femora are intact. The hip joints are normally located. Osteoarthritic changes are noted in the hip and sacroiliac joints bilaterally, worse on the right. Left iliopsoas hematoma is noted, better demonstrated on concurrent abdomen pelvis CT. The urinary bladder is intact. There is moderate distention with stool. Impression: 1. No acute fracture or dislocation. Bilateral hip and SI joint osteoarthrosis, worse on the right. 2. Left ileo psoas hematoma, better demonstrated on concurrent abdomen pelvis CT. Please note that all CT scans at this facility use dose modulation, iterative reconstruction, and/or weight-based dosing when appropriate to reduce radiation dose to as low as reasonably achievable. Dictated by Mane Florez MD @ Apr 06 2020 11:49PM Signed by Dr. Mane Florez @ Apr 07 2020 12:12AM
[2020-04-07] MEDS ORDERED: Sodium Chloride 0.9% 1,000 ML IV SCH (00:15)
[2020-04-07] MEDS ORDERED: Acetaminophen/oxyCODONE 325-5 MG Tab PO ONE (00:54)
[2020-04-07] MEDS ORDERED: LORazepam 1 MG Tab PO ONE (01:02)
[2020-04-07 01:45] VITALS: BP 133/76; PULSE 82
--- NOTE | 2020-04-07 12:20 | CR ---
Hip Min 2V or 3V Lt CLINICAL HISTORY: Left hip pain FINDINGS: There is joint space narrowing. No fracture or osseous lesion is seen. IMPRESSION: Mild osteoarthritic change No fracture
== END 2020-04-07 02:14 | disposition home or self-care (01) ==
LOC: JP.ED 21:00
DX: R10.30 Lower abdominal pain, unspecified (principal); E11.9 Type 2 diabetes mellitus without complications; E78.00 Pure hypercholesterolemia, unspecified; I25.2 Old myocardial infarction; I25.10 Atherosclerotic heart disease of native coronary artery without angina pectoris; I11.0 Hypertensive heart disease with heart failure; I50.9 Heart failure, unspecified; M19.90 Unspecified osteoarthritis, unspecified site; E66.9 Obesity, unspecified; Z79.899 Other long term (current) drug therapy; Z79.82 Long term (current) use of aspirin; Z68.26 Body mass index [BMI] 26.0-26.9, adult
CPT/HCPCS: 36415; 73502; 73700; 74176; 80053; 85025; 85610; 85730; 96374; 99284; A9270; J1170; J7030

== ENCOUNTER 2021-12-10 15:21 | Emergency (ER) | payer MEDICARE, MEDICAID ==
[2021-12-10] MEDS ORDERED: Piperacillin/Tazobactam 2.25 GM in Sodium Chloride 0.9% 50 ML IV ONE (18:53)
[2021-12-10] MEDS ORDERED: Sodium Chloride 0.9% 10 ML Syringe FLUSH PRN (19:01)
[2021-12-11 04:47] LABS: ESTIMATED GFR 14 mL/min (>60)
[2021-12-11] MEDS ORDERED: Piperacillin/Tazobactam 2.25 GM in Sodium Chloride 0.9% 50 ML IV SCH (07:00)
[2021-12-11 07:48] VITALS: BP 104/67; PULSE 80
== END 2021-12-11 08:24 ==
LOC: JP.ED 15:21
DX: T81.49XA Infection following a procedure, other surgical site, initial encounter (principal); L89.629 Pressure ulcer of left heel, unspecified stage; L89.619 Pressure ulcer of right heel, unspecified stage; S82.202S Unspecified fracture of shaft of left tibia, sequela; R53.1 Weakness; E11.22 Type 2 diabetes mellitus with diabetic chronic kidney disease; I13.2 Hypertensive heart and chronic kidney disease with heart failure and with stage 5 chronic kidney disease, or end stage renal disease; N18.6 End stage renal disease; I50.9 Heart failure, unspecified; D63.1 Anemia in chronic kidney disease; I25.10 Atherosclerotic heart disease of native coronary artery without angina pectoris; E78.00 Pure hypercholesterolemia, unspecified; I25.2 Old myocardial infarction; M19.90 Unspecified osteoarthritis, unspecified site; F17.210 Nicotine dependence, cigarettes, uncomplicated; E66.9 Obesity, unspecified; Z20.822 Contact with and (suspected) exposure to COVID-19; Z99.2 Dependence on renal dialysis; Z79.82 Long term (current) use of aspirin; Z79.899 Other long term (current) drug therapy
CPT/HCPCS: 36415; 71046; 73590; 80048; 80053; 82040; 83605; 84145; 85025; 86140; 87070; 87077; 87186; 87205; 96365; 96367; 99284; J2543; J3370; J7050; U0002

== ENCOUNTER 2024-01-15 06:48 | Emergency (ER) | payer MEDICARE, MEDICAID ==
[2024-01-15] MEDS: Lactated Ringers 1,000 ML IV ONE (07:00)
[2024-01-15 07:23] LABS: MEAN CORPUSCULAR HGB CONC 32.5 g/dL (31.6-35.5)
[2024-01-15 07:30] LABS: INR 1.2; PROTHROMBIN TIME 11.9 sec (9.2-10.6)
[2024-01-15 07:34] LABS: A/G RATIO 0.7 (1.2-2.2); ALANINE AMINOTRANSFERASE,ALT 13 U/L (12-78); ALKALINE PHOSPHATASE 83 U/L (46-116); ASPARTATE AMNIOTRANSFERASE,AST 18 U/L (15-37); BILIRUBIN TOTAL 0.3 mg/dL (0.2-1.0); BLOOD UREA NITROGEN,BUN 51 mg/dL (7-18); CALCIUM 9.4 mg/dL (8.5-10.1); CARBON DIOXIDE,CO2 25 mmol/L (21-32); CHLORIDE,CL 99 mmol/L (100-108); EST CRCL DRUG DOSING (CG) 11.83 mL/min; ESTIMATED GFR 10 mL/min (>60); GLUCOSE RANDOM 104 mg/dL (74-106); POTASSIUM,K 5.2 mmol/L (3.6-5.2); PROTEIN TOTAL,TP 7.1 g/dL (6.4-8.2); SODIUM,NA 138 mmol/L (140-148)
[2024-01-15 07:35] LABS: ANION GAP 19.2 mmol/L (5.0-14.0)
[2024-01-15 07:36] LABS: CREATININE 5.4 mg/dL (0.8-1.3)
[2024-01-15] MEDS: Sodium Chloride 0.9% 1,000 ML IV ONE (08:19)
[2024-01-15 10:04] LABS: BASOPHILS ABSOLUTE AUTO 0.11 K/uL (0.00-0.10); BASOPHILS PERCENT AUTO 1.2 % (0.1-1.3); EOSINOPHILS ABSOLUTE AUTO 0.34 K/uL (0.00-0.40); EOSINOPHILS PERCENT AUTO 3.8 % (0.0-5.4); IMMATURE GRAN ABSOLUTE AUTO 0.06 K/uL (0.00-0.23); IMMATURE GRAN PERCENT AUTO 0.7 % (0.0-0.7); LYMPHOCYTES ABSOLUTE AUTO 2.04 K/uL (0.8-3.3); LYMPHOCYTES PERCENT AUTO 22.8 % (11.4-47.7); MONOCYTES ABSOLUTE AUTO 0.88 K/uL (0.20-0.90); MONOCYTES PERCENT AUTO 9.8 % (3.3-12.6); NEUTROPHILS ABSOLUTE AUTO 5.51 K/uL (1.0-7.6); NEUTROPHILS PERCENT AUTO 61.7 % (40.0-78.1)
[2024-01-15 10:08] LABS: HEMATOCRIT 24.9 % (38.4-49.7); HEMOGLOBIN 8.1 g/dL (12.9-16.9); MEAN CORPUSCULAR HEMOGLOBIN 30.5 pg (31.6-35.5); MEAN CORPUSCULAR VOLUME 93.6 fL (81.4-99.0); PLATELET COUNT,PLT 200 K/uL (130-375); RED BLOOD CELL COUNT 2.66 M/uL (4.14-5.76); WHITE BLOOD CELL COUNT,WBC 9.3 K/uL (3.2-11.0)
[2024-01-15 11:11] VITALS: BP 109/52; PULSE 65
== END 2024-01-15 11:12 ==
LOC: JP.ED 06:48
DX: K92.2 Gastrointestinal hemorrhage, unspecified (principal); I95.89 Other hypotension; I13.0 Hypertensive heart and chronic kidney disease with heart failure and stage 1 through stage 4 chronic kidney disease, or unspecified chronic kidney disease; N18.9 Chronic kidney disease, unspecified; N18.6 End stage renal disease; Z99.2 Dependence on renal dialysis; I50.9 Heart failure, unspecified; I25.10 Atherosclerotic heart disease of native coronary artery without angina pectoris; J44.9 Chronic obstructive pulmonary disease, unspecified; M19.90 Unspecified osteoarthritis, unspecified site; E78.00 Pure hypercholesterolemia, unspecified; E66.9 Obesity, unspecified; E11.9 Type 2 diabetes mellitus without complications; Z68.25 Body mass index [BMI] 25.0-25.9, adult; Z79.82 Long term (current) use of aspirin; Z79.899 Other long term (current) drug therapy
CPT/HCPCS: 36415; 80053; 82270; 83735; 85025; 85610; 86850; 86900; 86901; 96360; 96361; 99285; J7030; J7120

== ENCOUNTER 2024-11-12 20:29 | Emergency (ER) | payer MEDICARE, MEDICAID ==
[2024-11-12 20:39] VITALS: BP 101/56; PULSE 75
[2024-11-12 21:04] LABS: BASOPHILS ABSOLUTE AUTO 0.07 K/uL (0.00-0.10); BASOPHILS PERCENT AUTO 0.7 % (0.1-1.3); EOSINOPHILS ABSOLUTE AUTO 0.19 K/uL (0.00-0.40); EOSINOPHILS PERCENT AUTO 1.9 % (0.0-5.4); IMMATURE GRAN ABSOLUTE AUTO 0.05 K/uL (0.00-0.23); IMMATURE GRAN PERCENT AUTO 0.5 % (0.0-0.7); LYMPHOCYTES ABSOLUTE AUTO 1.35 K/uL (0.8-3.3); LYMPHOCYTES PERCENT AUTO 13.3 % (11.4-47.7); MONOCYTES ABSOLUTE AUTO 0.95 K/uL (0.20-0.90); MONOCYTES PERCENT AUTO 9.4 % (3.3-12.6); NEUTROPHILS ABSOLUTE AUTO 7.54 K/uL (1.0-7.6); NEUTROPHILS PERCENT AUTO 74.2 % (40.0-78.1); PLATELET COUNT,PLT 273 K/uL (130-375); RED BLOOD CELL COUNT 4.23 M/uL (4.14-5.76); WHITE BLOOD CELL COUNT,WBC 10.2 K/uL (3.2-11.0)
[2024-11-12 21:25] LABS: A/G RATIO 0.6 (1.2-2.2); ALANINE AMINOTRANSFERASE,ALT 13 U/L (12-78); ASPARTATE AMNIOTRANSFERASE,AST 16 U/L (15-37); BILIRUBIN TOTAL 0.5 mg/dL (0.2-1.0); BLOOD UREA NITROGEN,BUN 25 mg/dL (7-18); CARBON DIOXIDE,CO2 28 mmol/L (21-32); CHLORIDE,CL 98 mmol/L (100-108); EST CRCL DRUG DOSING (CG) 16.54 mL/min; ESTIMATED GFR 16 mL/min (>60); GLUCOSE RANDOM 87 mg/dL (74-106); POTASSIUM,K 3.9 mmol/L (3.6-5.2); PROTEIN TOTAL,TP 7.7 g/dL (6.4-8.2); SODIUM,NA 135 mmol/L (140-148)
[2024-11-12 21:27] LABS: CREATININE 3.8 mg/dL (0.8-1.3)
[2024-11-12 21:30] LABS: LACTIC ACID 0.7 mmol/L (0.4-2.0)
== END 2024-11-12 22:41 ==
LOC: JP.ED 20:29
DX: R10.9 Unspecified abdominal pain (principal); I25.10 Atherosclerotic heart disease of native coronary artery without angina pectoris; I13.0 Hypertensive heart and chronic kidney disease with heart failure and stage 1 through stage 4 chronic kidney disease, or unspecified chronic kidney disease; I50.9 Heart failure, unspecified; N18.9 Chronic kidney disease, unspecified; J44.9 Chronic obstructive pulmonary disease, unspecified; E78.00 Pure hypercholesterolemia, unspecified; I25.2 Old myocardial infarction; E11.22 Type 2 diabetes mellitus with diabetic chronic kidney disease; Z95.1 Presence of aortocoronary bypass graft; Z87.891 Personal history of nicotine dependence; Z79.899 Other long term (current) drug therapy; Z79.82 Long term (current) use of aspirin
CPT/HCPCS: 36415; 80053; 83605; 83690; 85025; 86140; 99284

== ENCOUNTER 2025-01-25 21:02 | Emergency (ER) | payer MEDICARE, MEDICAID ==
[2025-01-25 21:21] VITALS: BP 111/64; PULSE 77
[2025-01-25 21:41] LABS: BASOPHILS ABSOLUTE AUTO 0.09 K/uL (0.00-0.10); BASOPHILS PERCENT AUTO 0.6 % (0.1-1.3); EOSINOPHILS ABSOLUTE AUTO 0.26 K/uL (0.00-0.40); EOSINOPHILS PERCENT AUTO 1.9 % (0.0-5.4); IMMATURE GRAN ABSOLUTE AUTO 0.25 K/uL (0.00-0.23); IMMATURE GRAN PERCENT AUTO 1.8 % (0.0-0.7); LYMPHOCYTES ABSOLUTE AUTO 1.73 K/uL (0.8-3.3); LYMPHOCYTES PERCENT AUTO 12.5 % (11.4-47.7); MONOCYTES ABSOLUTE AUTO 1.69 K/uL (0.20-0.90); MONOCYTES PERCENT AUTO 12.2 % (3.3-12.6); NEUTROPHILS ABSOLUTE AUTO 9.87 K/uL (1.0-7.6); NEUTROPHILS PERCENT AUTO 71.0 % (40.0-78.1); PLATELET COUNT,PLT 283 K/uL (130-375); WHITE BLOOD CELL COUNT,WBC 13.9 K/uL (3.2-11.0)
[2025-01-25 21:57] LABS: RED BLOOD CELL COUNT 3.40 M/uL (4.14-5.76)
[2025-01-25 22:03] LABS: A/G RATIO 0.6 (1.2-2.2); ALANINE AMINOTRANSFERASE,ALT 21 U/L (12-78); ASPARTATE AMNIOTRANSFERASE,AST 16 U/L (15-37); BILIRUBIN TOTAL 0.4 mg/dL (0.2-1.0); CARBON DIOXIDE,CO2 23 mmol/L (21-32); CHLORIDE,CL 99 mmol/L (100-108); EST CRCL DRUG DOSING (CG) 9.98 mL/min; ESTIMATED GFR 8 mL/min (>60); GLUCOSE RANDOM 94 mg/dL (74-106); POTASSIUM,K 4.3 mmol/L (3.6-5.2); PROTEIN TOTAL,TP 6.9 g/dL (6.4-8.2); SODIUM,NA 136 mmol/L (140-148)
[2025-01-25 22:05] LABS: BLOOD UREA NITROGEN,BUN 76 mg/dL (7-18); CREATININE 6.3 mg/dL (0.8-1.3)
== END 2025-01-25 23:19 ==
LOC: JP.ED 21:02
DX: T82.590A Other mechanical complication of surgically created arteriovenous fistula, initial encounter (principal); Z79.82 Long term (current) use of aspirin; I25.10 Atherosclerotic heart disease of native coronary artery without angina pectoris; I50.9 Heart failure, unspecified; E78.00 Pure hypercholesterolemia, unspecified; I11.0 Hypertensive heart disease with heart failure; I25.2 Old myocardial infarction; J44.9 Chronic obstructive pulmonary disease, unspecified; E11.9 Type 2 diabetes mellitus without complications; E66.9 Obesity, unspecified; Z95.5 Presence of coronary angioplasty implant and graft; Z79.899 Other long term (current) drug therapy; R60.9 Edema, unspecified; Y83.8 Other surgical procedures as the cause of abnormal reaction of the patient, or of later complication, without mention of misadventure at the time of the procedure
CPT/HCPCS: 36415; 80053; 85025; 99285